=== PATIENT | female | born 1945 | race Caucasian/White ===

== ENCOUNTER 2023-05-21 09:21 | Observation (INO) ==
--- NOTE | 2023-04-19 09:11 | PAT Medication Instructions ---
Medication Instructions Date of Service April 19, 2023 Home Medications amlodipine 5 mg tablet 5 mg PO QAM aspirin 81 mg tablet,delayed release 81 mg PO QAM celecoxib 200 mg capsule (Celebrex) 200 mg PO BID cyclobenzaprine 10 mg tablet 10 mg PO TID PRN ezetimibe 10 mg tablet 10 mg PO QAM lisinopril 20 mg tablet 20 mg PO QAM omeprazole 40 mg capsule,delayed release 40 mg PO QAM trazodone 300 mg tablet,extended release 24 hr 300 mg PO HS ASK your surgeon for instructions celecoxib 200 mg capsule (Celebrex) 200 mg PO BID ASK your prescriber and surgeon aspirin 81 mg tablet,delayed release 81 mg PO QA DO NOT take the morning of surgery lisinopril 20 mg tablet 20 mg PO QAM Take morning of surgery With a small sip of water, OTHERWISE NOTHING TO EAT OR DRINK AFTER MIDNIGHT: amlodipine 5 mg tablet 5 mg PO QAM cyclobenzaprine 10 mg tablet 10 mg PO TID PRN(if needed) ezetimibe 10 mg tablet 10 mg PO QAM omeprazole 40 mg capsule,delayed release 40 mg PO QAM Take evening before surgery cyclobenzaprine 10 mg tablet 10 mg PO TID PRN(if needed) trazodone 300 mg tablet,extended release 24 hr 300 mg PO HS Other Notes If you have any questions please call us at [phone] or [phone] or [phone] or [phone]
--- NOTE | 2023-04-25 14:45 | Anesthesiology Consultation ---
Date of Service April 25, 2023 Assessment & Plan (1) Encounter for pre-operative examination: - Infectious disease screening: Per assessment on 04/25/23: No known infectious disease contacts or current infectious disease symptoms. No noted recent Covid positive test result. - Outpatient joint assessment: Pt currently scheduled for inpatient pathway. If surgeon requests review for outpatient joint pathway, patient is not recommended candidate for outpatient joint program from anesthesia standpoint. - Aortic stenosis: Echo 06/2022 notes Mild to moderate aortic stenosis (EZEQUIEL 1.32cm2, MG 15mmhg). > Ultimate anesthesia decision by anesthesiologist DOS. - Patient concern: Patient notes significant anxiety related to upcoming surgery/anesthesia* - Anesthesia concern: Hx of spinal tap (age 30). Patient cannot remember the reason that they did the spinal tap but states that she was having issues with migraines at the time and thought this might have been related to the reason for doing it. She states there was procedure complications that resulted in CSF leaking/complicated hospital course. Also, hx of back surgery. Patient requests neuraxial anesthesia not used for upcoming Right TKA- requests general anesthesia (of note, patient also has mild to moderate aortic stenosis on 06/2022 Echo). Neuraxial vs GA reviewed with patient. Advised patient to discuss further with anesthesiologist DOS. - Patient acceptable risk for surgery pending surgeon-ordered PCP preop ev aluation (ELVIRA Vargas/Dr. Juarez, appt 05/15). Chart Review Chart Review: Patient seen in Pre Admission Testing Teaching & Discussion Pre-Anesthesia Teaching/Discussion Notes: Instructed NPO after midnight before surgery,except medications with 15 cc of water. Medication instructions prov ided according to the PAT guidelines. History Surgery Operation Date: 05/21/23 11:45 Proposed Procedures p Right Total Knee Arthroplasty - Leonard Huang MD Height/Weight Height: 5 ft 2 in Weight: 67.5 kg Allergies Allergy/AdvReac Type Severity Reaction Status Date / Time nabumetone [From Relafen] Allergy Severe Chest Pain Verified 04/13/23 08:02 nitrofurantoin Allergy Severe Nausea Verified 04/13/23 08:02 [From Macrobid] Penicillins Allergy Intermediate Hives Verified 04/13/23 08:02 tetracycline Allergy Intermediate Vomiting Verified 04/13/23 08:02 pseudoephedrine Allergy Mild Rash Verified 04/13/23 08:02 Sulfa (Sulfonamide Allergy Mild Hives Verified 04/13/23 08:02 Antibiotics) Medications Home Medications Medication Instructions Recorded Confirmed Last Taken amlodipine 5 mg tablet 5 mg PO QAM 04/13/23 04/13/23 Unknown aspirin 81 mg tablet,delayed 81 mg PO QAM 04/13/23 04/13/23 Unknown release celecoxib 200 mg capsule (Celebrex) 200 mg PO BID 04/13/23 04/13/23 Unknown cyclobenzaprine 10 mg tablet 10 mg PO TID PRN Pain (Scale Score 04/13/23 04/13/23 Unknown 1-3) ezetimibe 10 mg tablet 10 mg PO QAM 04/13/23 04/13/23 Unknown lisinopril 20 mg tablet 20 mg PO QAM 04/13/23 04/13/23 Unknown omeprazole 40 mg capsule,delayed 40 mg PO QAM 04/13/23 04/13/23 Unknown release trazodone 300 mg tablet,extended 300 mg PO HS 04/13/23 04/13/23 Unknown release 24 hr Past Medical History Medical History Aortic stenosis Echo 06/2022: Mild to moderate aortic stenosis (EZEQUIEL 1.32cm2, MG 15mmhg) Basal cell carcinoma (BCC) Under surveillance Chronic pain CSF leak Hx of spinal tap (age 30). Patient cannot remember the reason that they did the spinal tap but states that she was having issues with migraines at the time and thought this might have been related to the reason for doing it. She states there was procedure complications that resulted in CSF leaking/complicated hospital course. GERD (gastroesophageal reflux disease) History of COVID-19 2020- Covid + bacterial PNA, hospitalization x 1 month ([facility]) > resolved Hypercholesteremia Hypertension Osteoarthritis Exercise / Class Metabolic Activity II 4-5 Yardwork/Stairs/Walk up hill (one FS: No CP, no SOB) Past Surgical History Surgical History History of back surgery x3 most recent 11/2022 History of basal cell carcinoma (BCC) excision x2, face and chest History of carpal tunnel surgery of right wrist History of colonoscopy History of decompression of both ulnar nerves History of esophagogastroduodenoscopy (EGD) History of left knee replacement History of total replacement of right shoulder joint Hx laparoscopic cholecystectomy Hx of bilateral cataract extraction Hx of section x3 Hx of left knee surgery left total knee revision Hx of left knee surgery patellar surgery Hx of shoulder surgery left AC joint impingement Hx of sinus surgery x3 Hx of total hysterectomy Nausea and vomiting after administration of anesthetic agent Past Anesthesia History No Hx of Anesthesia Complications and No Family Hx of Anesthesia Complications History of PONV History of PONV and Hx of Motion Sickness Social History Smoking Status: Never smoker Do You Dip or Chew Tobacco: No Hx Alcohol Use: Yes alcohol intake frequency: holidays/special occasions only Hx Substance Use: No substance use type: does not use Review of Systems Patient denies chest pain, shortness of breath, dyspnea on exertion, fever, chills, cough, wheezing, palpitations. Physical Exam Vital Signs BP 148/75 P 79 TEMP 97.6 SP02 98%RA RESP 18 Physical Full cervical extension range of motion. Full TMJ range of motion. TMD 3 finger breaths Mallampati Score 2 Dentition: intact, + bridge (upper front) Lungs: clear throughout to auscultation Cardiac: regular rate and rhythm, II/ systolic murmur Spine: normal Carotid arteries: negative bruit Extremities: no LE edema Lab Results Anesthesia Preop Results Results Anesthesia Widget: WBC 3.60 K/ul (4.8-10.8) L 04/25/23 Hgb 11.8 g/dl (12.0-16.0) L 04/25/23 Hct 37.4 % (37.0-47.0) 04/25/23 Plt 181 K/uL (130-400) 04/25/23 Na 142 mmol/L (136-145) 04/25/23 K 3.7 mmol/L (3.5-5.1) 04/25/23 Cl 109 mmol/L (98-107) H 04/25/23 CO2 27 mmol/L (21-32) 04/25/23 BUN 17 mg/dl (6-23) 04/25/23 Creat 0.71 mg/dl (0.6-1.2) 04/25/23 Glucose Level 87 mg/dl (70-99(Fasting)) 04/25/23 PT 10.4 Seconds (9.0-12.0) 04/25/23 PTT 27 Seconds (21-31) 04/25/23 INR 0.9 (0.9-1.1) 04/25/23 Urine Color Yellow 04/25/23 Urine Appearance Cloudy (Clear) A 04/25/23 Urine pH 6.0 (4.5-7.5) 04/25/23 Urine Specific [place] 1.030 (1.000-1.030) 04/25/23 Urine Protein Trace (Negative) H 04/25/23 Urine Glucose (UA) Negative (Negative) 04/25/23 Urine Ketones Trace (Negative) H 04/25/23 Urine Blood Negative (Negative) 04/25/23 Urine Nitrite Negative (Negative) 04/25/23 Urine Bilirubin Negative (Negative) 04/25/23 Urine Urobilinogen Negative (Negative) 04/25/23 Urine Leukocyte Esterase Negative (Negative) 04/25/23 Urine WBC (Auto) 1-5 /hpf (0-5) 04/25/23 Urine RBC (Auto) 0-4 /hpf (0-4) 04/25/23 Urine Hyaline Casts (Auto) 1-5 /lpf (0-5) 04/25/23 Urine Epithelial Cells (Auto) >30 /lpf (0-5) H 04/25/23 Urine Bacteria (Auto) Negative (Negative) 04/25/23 Blood Type O Positive 04/25/23 Antibody Screen NEGATIVE 04/25/23 Testing Laboratory Results *Low WBC- preop testing forwarded to PCP for continuity of care* Chest X-Ray Date: 04/25/23 FINDINGS: No lines and tubes are seen. The cardiomediastinal silhouette is normal. The lungs are clear. No evidence of pleural effusion or pneumothorax. Right shoulder arthroplasty is seen. IMPRESSION: No acute chest disease. Echocardiogram Date: 06/21/22 EF 60-64%. Moderate mitral sclerosis. Mild MAC. Mild MR. Moderate calcified AV. Mild to moderate aortic stenosis (EZEQUIEL 1.32cm2, MG 15mmhg). Mild AR. Trace to mild TR. Mild cLVH. Mildly enlarged ascending aorta.
--- NOTE | 2023-05-04 19:35 | History & Physical Report ---
Date of Service May 04, 2023 Assessment & Plan (1) Osteoarthritis of knee: Plan: Right knee pre-existing primary osteoarthritis of the knee medial compartment with subsequent knee injury due to trauma and development of insufficiency fracture medial femoral condyle with chronic pain failed conservative management. Best option is to proceed with right total knee replacement at her age. History of left knee replacement which required revision replacement with stems. Risks and benefits of the surgery were discussed including infection DVT pain stiffness nonunion need for revision surgery failure to relieve all symptoms damage to blood vessels or nerves Medical complication risk. Patient wants to proceed with knee replacement surgery on the right knee. Osteoarthritis type: primary Laterality: right Qualified Code(s): M17.11 - Unilateral primary osteoarthritis, right knee (2) Insufficiency fracture of medial femoral condyle: History of Present Illness Chief Complaint: Right knee pain and disability Primary Care Provider: Cortez Juarez DO 77-year-old female who on February 13 went to catch a friend who weighed around 250 pounds and injured her right knee. Patient had bracing and injection protected weightbearing. Patient denies headaches, sweats, fevers, chills, double vision, blurred vision, cough, sore throat, dysphagia, chest pain, sob, wheezing, n/v/d/c, numbness, tingling, fatigue, urinary symptoms, mood disorders. ROS positive for hypertension, lumbar fusion, acid reflux heartburn, basal cell cancer ,nausea with anesthesia Allergies Allergy/AdvReac Type Severity Reaction Status Date / Time nabumetone [From Relafen] Allergy Severe Chest Pain Verified 04/13/23 08:02 nitrofurantoin Allergy Severe Nausea Verified 04/13/23 08:02 [From Macrobid] Penicillins Allergy Intermediate Hives Verified 04/13/23 08:02 tetracycline Allergy Intermediate Vomiting Verified 04/13/23 08:02 pseudoephedrine Allergy Mild Rash Verified 04/13/23 08:02 Sulfa (Sulfonamide Allergy Mild Hives Verified 04/13/23 08:02 Antibiotics) Home Medications Medication Instructions Recorded Confirmed Type amlodipine 5 mg tablet 5 mg PO QAM 04/13/23 04/13/23 History aspirin 81 mg tablet,delayed 81 mg PO QAM 04/13/23 04/13/23 History release celecoxib 200 mg capsule (Celebrex) 200 mg PO BID 04/13/23 04/13/23 History cyclobenzaprine 10 mg tablet 10 mg PO TID PRN Pain (Scale Score 04/13/23 04/13/23 History 1-3) ezetimibe 10 mg tablet 10 mg PO QAM 04/13/23 04/13/23 History lisinopril 20 mg tablet 20 mg PO QAM 04/13/23 04/13/23 History omeprazole 40 mg capsule,delayed 40 mg PO QAM 04/13/23 04/13/23 History release trazodone 300 mg tablet,extended 300 mg PO HS 04/13/23 04/13/23 History release 24 hr Past Med/Surg History Medical History Aortic stenosis Echo 06/2022: Mild to moderate aortic stenosis (EZEQUIEL 1.32cm2, MG 15mmhg) Basal cell carcinoma (BCC) Under surveillance Chronic pain CSF leak Hx of spinal tap (age 30). Patient cannot remember the reason that they did the spinal tap but states that she was having issues with migraines at the time and thought this might have been related to the reason for doing it. She states there was procedure complications that resulted in CSF leaking/complicated hospital course. GERD (gastroesophageal reflux disease) History of COVID-19 2020- Covid + bacterial PNA, hospitalization x 1 month ([facility]) > resolved Hypercholesteremia Hypertension Osteoarthritis Surgical History History of back surgery x3 most recent 11/2022 History of basal cell carcinoma (BCC) excision x2, face and chest History of carpal tunnel surgery of right wrist History of colonoscopy History of decompression of both ulnar nerves History of esophagogastroduodenoscopy (EGD) History of left knee replacement History of total replacement of right shoulder joint Hx laparoscopic cholecystectomy Hx of bilateral cataract extraction Hx of section x3 Hx of left knee surgery left total knee revision Hx of left knee surgery patellar surgery Hx of shoulder surgery left AC joint impingement Hx of sinus surgery x3 Hx of total hysterectomy Nausea and vomiting after administration of anesthetic agent Social History Smoking Status: Never smoker Second Hand Exposure: No; Do You Dip or Chew Tobacco: No; Tobacco Cessation Education Requested by Patient: No Hx Alcohol Use: Yes Hx Substance Use: No Preferred Language: Macedonian Communication Ability: Effective Curriculum Counselor Required: No Beliefs That Will Affect Care: None Current Living Situation: Alone Other Information That Helps Us Care for You: No Feels Safe at Home: Yes Safety Concerns: Feels Safe At This Time Assistive Devices: Cane and Glasses Review of Systems All systems reviewed & are unremarkable except as noted in HPI & below Physical Exam Constitutional: WD/WN, vitals as above Respiratory: normal respiratory effort; no respiratory distress Cardiovascular: Rate/Rhythm: regular rate and regular rhythm Musculoskeletal: Right knee with varus knee with 10 through 90 degrees of range of motion no instability. Left knee exam consistent with knee replacement. Skin: no rashes, warm and dry Neurologic: normal touch/pain/proprioception Psychiatric: A+Ox3, euthymic affect Results & Data Diagnostic Findings Right knee x-ray and MRI demonstrate medial joint space narrowing close to being [id number] with subchondral sclerosis and medial femoral condyle has a large insufficiency fracture with marked bone edema in the femoral condyle. Could have osteonecrosis medial femoral condyle.
[~2023-05-21 09:21] MED LIST: ROPIVACAINE 0.5% 5 MG/ML 30 ML VIAL ONE
[2023-05-21] MEDS ORDERED: ePHEDrine sulfate 50 MG/ML AMP IV PRN (09:48)
[2023-05-21] MEDS ORDERED: ONDANSETRON INJ 2 MG/ML 2 ML VIAL IV PRN (09:48)
[2023-05-21] MEDS ORDERED: ATROPINE SULFATE 0.1 MG/ML 10ML SYR IV PRN (09:48)
[2023-05-21] MEDS ORDERED: PROPOFOL IV EMULSION 10 MG/ML 20 ML VIAL IV ONE (09:52)
[2023-05-21] MEDS ORDERED: fentaNYL citrate PF 100 MCG/2 ML VIAL ONE ×2 (09:52→11:49)
[2023-05-21] MEDS ORDERED: ROCURONIUM BROMIDE 10 MG/ML 5 ML VIAL IV ONE (09:52)
[2023-05-21] MEDS ORDERED: MIDAZOLAM HCL 1 MG/ML 2ML VIAL ONE (09:53)
[2023-05-21] MEDS: LR 15ML/HR IV SCH (09:55)
[2023-05-21] MEDS: dexAMETHasone**PF** 10 MG/ML VIAL IV SCH (09:56)
[2023-05-21] MEDS: VANCOMYCIN HCL 1,000 MG/270 ML BAG IV SCH (09:57)
[2023-05-21] MEDS: ACETAMINOPHEN 500 MG TAB PO SCH ×2 (10:02→21:31)
[2023-05-21] MEDS: FAMOTIDINE 20 MG TAB PO SCH (10:03)
[2023-05-21] MEDS: METOCLOPRAMIDE HCL 10 MG TABLET PO SCH (10:03)
[2023-05-21] MEDS: LR 60ML/HR IV SCH (10:03)
[2023-05-21] MEDS: CeleBREX 200 MG CAP PO SCH (10:03)
[2023-05-21] MEDS: GABAPENTIN 300 MG CAP PO SCH (10:03)
--- NOTE | 2023-05-21 11:13 | History & Physical Bridge Note ---
Date of Service May 21, 2023 History & Physical Bridge Note I have examined the patient, reviewed the History & Physical and in the interval since the performance of the History & Physical I have noted the following changes of clinical significance: no changes noted
[2023-05-21] MEDS: TRANEXAMIC ACID 1,000 MG **IV Pre-op IV SCH (11:14)
[2023-05-21] MEDS ORDERED: DEXAMETHASONE SOD INJ 4 MG/ML VIAL ONE (11:43)
[2023-05-21] MEDS ORDERED: ONDANSETRON INJ 2 MG/ML 2 ML VIAL ONE (11:43)
[2023-05-21] MEDS ORDERED: ePHEDrine sulfate 50 MG/5 ML SYR ONE (11:50)
[2023-05-21] MEDS ORDERED: SUGAMMADEX SODIUM 200 MG/2 ML VIAL IV ONE (12:09)
[2023-05-21] MEDS ORDERED: HYDROmorphone INJ 2 MG/ML SYR/VIAL ONE (12:13)
[2023-05-21] MEDS: ROPIV 0.5% 246mg, Ketorolac 30mg, EPINEPHrine 0.5mg in NSS INFIL SCH (12:25)
[2023-05-21] MEDS: ORTHO JOINT ANESTHETIC ONE (12:26)
[2023-05-21] MEDS ORDERED: METOPROLOL TARTRATE 1 MG/ML VIAL IV ONE (12:36)
--- OUTSIDE RECORDS SUMMARY | 2023-05-21 13:00 | External Medical Summary | Summary of Care ---
Author Name Unknown Organization [facility] Address [address] [place] [address] Phone [phone] Care Team Providers Care Drill Punch Operator Name Role Phone Cortez Juarez DO Primary Care Provider Encounter Details Date Type Department Care Team (Latest Contact Info) Description 04/24/2023 1:17 PM EDT - 04/24/2023 11:59 PM EDT Hospital Encounter Radiology Film File [address] [place] [address] Arrived Discharge Disposition: Home - Self Care Allergies Active Allergy Reactions Criticality Noted Date Comments Nitrofurantoin Monohyd Macro Nausea/vomiting Medium 09/14/2015 Nabumetone Other (Please comment) Medium 06/11/2015 Reported chest pain Other reaction(s): Other (See Comments), Unspecified Chest heaviness Reported chest pain Nitrofurantoin 06/14/2018 Other reaction(s): GI intolerance Penicillins Hives,Rash Low 12/07/2011 Tolerated periop cefazolin 11/2018 Pseudoephedrine Other (Please comment) 12/07/2011 "crawling" feeling on skin Other reaction(s): Other (See Comments), Unspecified "bugs under skin" Feels like bugs crawling on body. "crawling" feeling on skin Sulfa Antibiotics Hives,Rash Low 12/07/2011 Tetracyclines & Related Nausea/vomiting Low 07/19/ 016 Other reaction(s): GI intolerance Nausea Other reaction(s): GI intolerance Nausea documented as of this encounter (statuses as of 04/25/2023) Medications Medication Sig Dispensed Refills Start Date End Date Status Levocetirizine Dihydrochloride 5 MG Oral TabletIndications:Seas onal allergies take 1 tablet by mouth every evening 90 Tablet 1 04/25/2021 Active amLODIPine Besylate 5 MG Oral Tablet (Norvasc)Indications:H TN, goal below 140/90 Take by mouth 1 Tablet in the morning. 90 Tablet 3 05/12/2021 Active Meloxicam 15 MG Oral TabletIndications:Prim irwin osteoarthritis of left knee take 1 tablet by mouth once daily NEEDED FOR PAIN 90 Tablet 1 09/08/2021 Active Lisinopril 20 MG Oral Tablet (Prinivil)Indications: HTN, goal below 140/80,Essential hypertension with goal blood pressure less than 140/90 Take by mouth 1 Tablet in the morning. 90 Tablet 1 09/26/2021 Active traZODone HCl 300 MG Oral Tablet (Desyrel)Indications:P rimary insomnia take 1 tablet by mouth at bedtime 90 Tablet 1 09/27/2021 Active Omeprazole 40 MG Oral Capsule Delayed Release (PriLOSEC)Indications: Gastroesophageal reflux disease without esophagitis TAKE 1 CAPSULE BY MOUTH 1 HOUR BEFORE THE FIRST MEAL OF THE DAY 90 Capsule 1 10/03/2021 Active Ezetimibe 10 MG Oral Tablet (Zetia) Take by mouth 1 Tablet in the morning. 90 Tablet 1 10/03/2021 Active Ventolin HFA 108 (90 Base) MCG/ACT Inhalation Aerosol Solution Inhale by mouth 2 Puffs every 4 hours as needed for Wheezing. 18 g 2 11/10/2021 Active Furosemide 20 MG Oral Tablet (Lasix) 1 Tablet. 0 09/12/2022 Active traMADol HCl 50 MG Oral Tablet (Ultram) TAKE 1 TABLET BY MOUTH EVERY 6 HOURS NEEDED FOR MODERATE PAIN. MAX DAILY AMOUNT: 200 MG 0 10/23/2022 Active Celecoxib 200 MG Oral Capsule (CeleBREX) Take 1 Capsule by mouth in the morning and 1 Capsule before bedtime. 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 06/23/2018 Hyperlipidemia 05/30/2018 Status post total left knee replacement 03/04/19 19 Instability of prosthetic knee 01/04/2018 S/P shoulder replacement, right 08/29/2017 Right shoulder pain 04/19/2017 Biceps tendonitis on right 04/19/2017 HTN, goal below 140/90 07/19/2015 Overview: Per HTN Protocol Rosacea 06/14/2015 Overview: Presumptive, minor skin findings but many eye complaints minocycline 50mg once a day History of actinic keratoses 06/14/2015 Overview: Diffuse Actinic Keratoses on face 5FU Dec 2011 Personal history of malignant neoplasm of skin 0 06/14/2015 Overview: History Basal Cell Carcinoma L uppermost arm///C44. Primary osteoarthritis of left knee 12/30/2014 Hiatal hernia 12/30/2014 documented as of this encounter (statuses as of 04/25/2023) Resolved Problems Problem Noted Date Diagnosed Date Resolved Date Aftercare following surgery of the musculoskeletal system 08/29/2017 06/23/2018 Acute pain of left knee 11/09/201506/05 Status post total left knee replacement 06/14/2015 06/23/2018 HTN, goal below 140/80 05/04/201507/21 Overview: Per HTN Protocol Other seborrheic keratosis 04/12/2012 0 04/15/2013 Personal history of other ma lignant neoplasm of skin 12/11/2011 06/14/2015 Overview: History Basal Cell Carcinoma L uppermost arm///C44. Actinic keratosis 12/07/2011 04/15/2013 Overview: Diffuse Actinic Keratoses on face 5FU Dec 2011 documented as of this encounter (statuses as of 04/25/2023) Immunizations Name Administration Dates Next Due DTaP Dipth/Tet/Acell Pertussis (Infanrix), Peds 09/14/1998,08/12/1996,04/19/1994,02/14,12/09/1993 HIB PRP-T, 4 dose (ActHib) 09/14/1998,,04/19/1994,02/14,12/09/1993 Hepatitis B, 0-19 yrs 08/12/1996,12/09/1993,10/07 IPV - Polio Virus Vaccine (Inact) 1998,03/18/1996,02/14/1994,12/09 MMR - Measles/Mumps/Rubella Vaccine 09/14/1998,0 03/18/1996 Meningococcal Conjugate Vacc ine (Menactra/Menveo) 05/14/2008 Pneumococcal Conjugate Vacc, 13 Valent (Prevnar) 08/04/2019 Pneumococcal Polysaccharide PPV23 (Pneumovax) 11/29/2017 Seasonal Influenza, Quadriva lent Hd (Fluzone Hd) 11/10/2021 Seasonal Influenza, Recombin ant, RIV4, PF, (Flublock) 12/05/2020 documented as of this encounter Social History Tobacco Use Types Packs/Day Years Used Date Smoking Tobacco: Never Smokeless Tobacco: Never Alcohol Use Standard Drinks/Week Comments Yes 0 (1 standard drink = 0.6 oz pur e alcohol) rarely PHQ-2 Answer Date Recorded PHQ-2 Score 0 08/04/2019 Hunger Vital Sign Answer Date Recorded Worried About Running Out of Food in the Last Ye ar Never true 08/04/2019 Ran Out of Food in the Last Year Never true 08/04/2019 Sex and Gender Information Value Date Recorded Sex Assigned at Not on file Gender Identity Not on file Sexual Orientation Not on file Job Start Date Occupation Industry Not on file Not on file Not on file documented as of this encounter Functional Status Functional Status Response Date of Assess ment Are you deaf or do you have serious difficulty h earing? No 03/04/2018 Are you blind or do you have serious difficulty seeing, even when wearing glasses? No 03/04/2018 Do you have serious difficul ty walking or climbing stairs? (5 years old or older) No 03/04/2018 Do you have difficulty dress ing or bathing? (5 years old or older) No 03/04/2018 Because of a physical, menta l, or emotional condition, do you have difficulty doing errands alone such as visiting a doctor s office or shopping? (15 years old or older) No 03/04/19 19 Cognitive Status Response Date of Assessm ent Because of a physical, menta l, or emotional condition, do you have serious difficulty concentrating, remembering, or making decisions? (5 years old or older) No 03/04/2018 documented as of this encounter Plan of Treatment Upcoming Encounters Date Type Department Care Team (Late st Contact Info) Description 11/27/2023 2:30 PM EDT Office Visit Dermatology, [facility] [address] [place] [phone] Juhi Krause PA-C [address] [place] [phone] Health Maintenance Due Date Last Done Comments Albumin/Creatinine Ratio 08/25/1963 Zoster Vaccines (1 of 2) 08/25/1995 DTaP,Tdap,and Td Vaccines (6 - Tdap) 09/14/2008 09/14/1998, 08/12/1996, 04/19/1994, Additional history exists Depression Screening 08/03/2020 08/04/2019, 03/17/19 17 COVID-19 Vaccine ( season) 2022 Influenza Vaccine (FLU shot) (#1) 2022 11/10/2021, 11/10/2021, 11/10/2021, Additional history exists GFR 12/08/2023 12/07/2022, 03/2022, 12/06/2022, Additional history exists DXA Scan 07/29/2025 07/29/2018, 07/07, 07/29/2018, Additional history exists Hepatitis B Aged Out 08/12/1996, 05/1993, 10/25/1993 No longer eligible based on patient's age to complete this topic MENINGOCOCCAL (MENACTRA/MENVEO) Aged Out 05/14/2008, 05/14/2008 No longer eligibl e based on patient's age to complete this topic Pneumococcal Vaccine: 65+ Years Completed 08/04/2019, 11/29/2017 GARDASIL-HPV IMMUNIZATION SERIES Aged Out No longer eligible based on patient's age to complete this topic documented as of this encounter Medical Devices Implanted Type Area Director Enterprise Sales Device Identifier Shelf Expiration Date Model / Serial / Lot Nice Loop White/Green Braided Ptfe Impregnated Polyester Fiber Nonabsorable Surgicle Suture Implanted:Qty: 1 on 08/21/2017 by Chaim Ambrose DO at OR [facility] Right: Shoulder 04/27/2021 [id number] / / [id number] Wite Braided Ptfe Impregnated Polyester Fiber Nonabsorable Surgical Suture Implanted:Qty: 1 on 08/21/2017 by Chaim Ambrose DO at OR [facility] Right: Shoulder 03/10/2021 [id number] / / [id number] Green Braided Ptfe Imed Polyester Fiber Nonabsorbable Surgical Suture Implanted:Qty: 1 on 08/21/2017 by Chaim Ambrose DO at OR [facility] Right: Shoulder 12/01/2020 [id number] / / [id number] Cement Bone R 1112-140-01 - [id number] Implanted:Qty: 1 on 08/21/2017 by Chaim Ambrose DO at OR [facility] Right: Shoulder [employer] 03/07/2022 00-1112-1 40-01 / / Aequalis Perform Cortiloc Pegged Glenoid-Uhmwpe +Cocr Implanted:Qty: 1 on 08/21/2017 by Chaim Ambrose DO OR [facility] Right: Shoulder [employer] 04/18/2022 [id number] / [id number] / Aequalis Humeral Head-Cocr 0= 46mm H= 17mm Ecc =Low (1.5) Mat=Cocr Implanted:Qty: 1 on 08/21/2017 by Chaim Ambrose DO at OR [facility] Right: Shoulder [employer] 12/28/2021 [id number] / [id number] / Standard Ptc Humeral Stem [id number] + Ti Size=3a, Mmdvq=419.5 Degree L=74mm Coat=Ptc Implanted:Qty: 1 on 08/21/2017 by Chaim Ambrose DO OR [facility] Right: Shoulder [employer] 01/25/2021 [id number] / [id number] / [place] Suture Biocomposite - [id number] Implanted:Qty: 2 on 08/21/2017 by Chaim Ambrose DO at OR [facility] Right: Shoulder [employer] 06/05/2019 [id number] / / [id number] Cement Bone G 1113-140-01 - [id number] Implanted:Qty: 1 on 03/04/2018 by Joe Quintana MD at OR [facility] Left: Knee [employer] 09/05/2019 00-1113-1 40- / / [id number] Gmk Wedge Tibial Hinge 5mm S3 - [id number] Implanted:Qty: 1 on 03/04/2018 by Joe Quintana MD at OR [facility] Left: Knee [employer] 12/11/2022 02.09.TA3 05 / [id number] Gmk Wedge Tibial Hinge 5mm S3 - [id number] Implanted:Qty: 1 on 03/04/2018 by Joe Quintana MD at OR [facility] Left: Knee [employer] 12/11/2022 02.09.TA3 354 Femoral Component- Medacta Cemented Revision Left Ps Implanted:Qty: 1 on 03/04/2018 by Joe Quintana MD at OR [facility] Left: Knee 05/24/2022 02.07.240 3L / / [id number] Description:medacta Femoral Wedge Posterior Size 3, Height 5, Revision Implanted:Qty: 1 on 03/04/2018 by Joe Quintana MD at OR [facility] Left: Knee 2021 02.05.03P W / / [id number] Description:medacta Extension Stem Cemented- Length 65, 13, Revision Implanted:Qty: 1 on 03/04/2018 by Joe Quintana MD at OR [facility] Left: Knee 01/02/2023 02.07.FSC 86992 / / [id number] Description:medacta Extension Stem Cemented- 11, Length 65, Revision Implanted:Qty: 1 on 03/04/2018 by Joe Quintana MD at OR [facility] Left: Knee 05/07/2021 02.07.FSC [id number] / / [id number] Description:medacta Fixed Tibial Tray- Size 3, Left, Cemented Revision Implanted:Qty: 1 on 03/04/2018 by Joe Quintana MD at OR [facility] Left: Knee 10/15/2022 02.07.068 3L / / [id number] Description:medacta Tibial Insert Fixed- Size 3, Height 17, Semiconstrained Implanted:Qty: 1 on 03/04/2018 by Joe Quintana MD at OR [facility] Left: Knee 04/25/2022 02.07.031 7SCF / / [id number] Description:medacta Cement Bone G 1113-140-01 - [id number] Implanted:Qty: 4 on 03/04/2018 by Joe Quintana MD at OR [facility] Left: Knee [employer] 06/04/2020 00-1113-1 40- / / [id number] documented as of this encounter Procedures Procedure Name Priority Date/Time Associated Diagnosis Comments DERM EXAM - DERM (IMAGES ONLY, NO REPORT) Routine 04/24/2023 1:17 PM EDT AK (actinic keratosis) documented in this encounter Results * DERM EXAM - DERM (IMAGES ONLY, NO REPORT) (04/24/2023 1:17 PM EDT) Narrative Scheduling, Silent - 04/24/2023 1:17 PM EDT This is an imaging study not interpreted or resulted by a [facility] or [facility] contracted radiologist. Juhi Krause PA-C RADIOLO GY (RAD GENERAL) documented in this encounter Advance Directives Latest Code Status on File Code Status Date Activated Date Inactivated Comments Full Code 03/04/2018 10:02 AM 03/06/2018 4:59 PM This order reflects the patients wishes and were consensually agreed upon. Code Status History Code Status Date Activated Date Inactivated Comments Full Code 03/04/2018 10:01 AM 03/04/2018 10:02 AM Thi s order reflects the patients wishes and were consensually agreed upon. Question Answer Comments Discussion of Advance Directives occurred with: Not Discussed Does the patient have a Living Will? No Does the patient have Health Care Power of Cloth Piecer? No Full Code 08/21/2017 4:14 PM 08/23/2017 4:52 PM . Question Answer Comments Discussion of Advance Directives occurred with: Not Discussed Full Code 07/10/2017 1:18 PM 07/10/2017 7:17 PM This or kelle reflects the patients wishes and were consensually agreed upon. Care Teams Drill Punch Operator Relationship Specialty Start Date End Date Cortez Juarez DO [address] [place] [address] [place] [phone] PCP - General Family Medicine 08/05/16 documented as of this encounter
--- OUTSIDE RECORDS SUMMARY | 2023-05-21 13:00 | External Medical Summary | Continuity of Care Document ---
Author Name Unknown Organization [address] [place] [id number] Care Team Providers Care Bee Keeper Name Role Phone Cortez Juarez Primary Care Physician [phone] Encounter [facility] [id number] Date(s): 05/17/23 - 05/17/[address] [facility] [address] [place] [id number] Encounter Diagnosis Preoperative examination(Discharge Diagnosis) - 05/17/23 Preop testing(Discharge Diagnosis) - 05/17/23 Osteoarthritis of right knee(Discharge Diagnosis) - 05/17/23 Hx of shoulder replacement(Discharge Diagnosis) - 05/17/23 Hypertension(Discharge Diagnosis) - 05/17/23 Prediabetes(Discharge Diagnosis) - 05/17/23 Anxiety(Discharge Diagnosis) - 05/17/23 Discharge Disposition: Home or Self Care Attending Physician: DO Juarez Daniel T Referring Physician: DO Juarez Daniel T Allergies, Adverse Reactions, Alerts Substance Reaction Severity Status tetracycline vomiting Active nitrofurantoin Drug-induced nausea and vomiting Modera te Active nabumetone Active pseudoephedrine crawling under skin Activ e diclofenac Propensity to adverse reaction Active sulfa drugs rash hives Active Macrobid severe nausea vomiting Active tetracyclines Gastrointestinal symptom Mild Ac tive Relafen Severe nausea and vo miting that has lasted a long time.... Chest pain Active PCN (penicillin) rash hives Active Assessment and Plan Extracted from: Title:Office Visit Note Author:DO Juarez Danie l T Date:05/17/23 1.Preoperative examination 2.Preop testing 3.Osteoarthritis of right knee ECG in office : NSR 72 bpm, VR 72, AR 72, No acute or ischemic ST-T changes appreciated- Normal ECG CXR 04/25/23- no acute chest disease Per-op labs : PT 10.4, INR 0.9, PTT 27 BUN 17, Cr 0.71 GFR 95.2 BMP unremarkable, CBC unremarkable UA unremarkable Blood type O +, Ab negative Pt was informed to hold ASA, Celebrex starting today and no OTC NSAIDS til after procedure Tylenol XS 2 bid prn Tramadol 100 mg q 6hr prn 4.Anxiety Pt relates increased stress, anxiety with procedure Provided Rx for lorazepam 0.5 mgbid prn 5.Hypertension Stable Continue amlodipine 5 mg daily Continue lisinopril 20 mg daily Furosemide 20 mg daily, hold am of surgery 6.Prediabetes Stable , most recent HgbA1c 5.3 Pt is medically and cleared for above procedure as scheduled Immunizations Given and Recorded Vaccine Date Status Refusal Reason influenza virus vaccine, inactivated 1 11/10/21 Re corded influenza virus vaccine, inactivated 2 12/05/20 Re corded influenza virus vaccine, inactivated 12/05/20 Juvenal rded pneumococcal 13-valent vaccine 3 08/04/19 Recorded pneumococcal 23-valent vaccine 4 11/29/17 Recorded meningococcal conjugate vaccine 05/14/08 Recorded haemophilus b conjugate (PRP-T) vaccine 09/14/98 R ecorded haemophilus b conjugate (PRP-T) vaccine 08/12/96 R ecorded haemophilus b conjugate (PRP-T) vaccine 04/19/94 R ecorded haemophilus b conjugate (PRP-T) vaccine 02/14/94 R ecorded haemophilus b conjugate (PRP-T) vaccine 12/09/93 R ecorded diphtheria/tetanus/pertuss, acel (DTaP) 09/14/98 R ecorded diphtheria/tetanus/pertuss, acel (DTaP) 08/12/96 R ecorded diphtheria/tetanus/pertuss, acel (DTaP) 04/19/94 R ecorded diphtheria/tetanus/pertuss, acel (DTaP) 02/14/94 R ecorded diphtheria/tetanus/pertuss, acel (DTaP) 12/09/93 R ecorded measles/mumps/rubella virus vaccine 09/14/98 Recor ded measles/mumps/rubella virus vaccine 03/18/96 Recor ded poliovirus vaccine, inactivated 09/14/98 Recorded poliovirus vaccine, inactivated 03/18/96 Recorded poliovirus vaccine, inactivated 02/14/94 Recorded poliovirus vaccine, inactivated 12/09/93 Recorded hepatitis B pediatric vaccine 08/12/96 Recorded hepatitis B pediatric vaccine 12/09/93 Recorded hepatitis B pediatric vaccine 10/25/93 Recorded 1Result Comment: [employer] Lead: [employer] 2Result Comment: [employer] Lead: [employer] 3Result Comment: Unit: Unknown [employer] Lead: [employer] [place] 4Result Comment: Unit: Unknown [employer] Lead: [employer] Medications amLODIPine 5 mg oral tablet Start: 03/26/23 8:55:00 EST, 1 tab, PO, Daily, Disp# 90 tab, Refills: 3, Pharmacy: [facility] [id number] Start Date: 03/26/23 Status: Ordered CeleBREX 200 mg oral capsule Start: 05/17/23 7:18:00 EDT, 1 cap, PO, bid, PRN: as needed for pain Start Date: 05/17/23 Status: Ordered cetirizine 10 mg oral tablet Start: 01/17/22 16:20:00 EST, 90 each, take 1 tablet by mouth every morning Start Date: 01/17/22 Status: Ordered ezetimibe 10 mg oral tablet Start: 10/24/22 8:18:00 EDT, See Instructions, Disp# 90 tab, Refills: 1, take 1 tablet by mouth every morning, Pharmacy: [facility] [id number] Start Date: 10/24/22 Status: Ordered furosemide 20 mg oral tablet Start: 10/24/22 8:18:00 EDT, 1 tab, PO, Daily, Disp# 90 tab, Refills: 1, Pharmacy: [place] [id number] Start Date: 10/24/22 Status: Ordered lisinopril 20 mg oral tablet Start: 04/16/23 8:11:00 EDT, 1 tab, PO, qAM, Disp# 90 tab, Refills: 1, Pharmacy: [facility] Start Date: 04/16/23 Status: Ordered LORazepam 0.5 mg oral tablet Start: 05/17/23 7:57:00 EDT, 1 tab, PO, bid, Disp# 6 tab, Refills: 0, PRN: as needed for anxiety, Pharmacy: [facility] [id number] Start Date: 05/17/23 Status: Ordered omeprazole 40 mg oral delayed release capsule Start: 12/27/22 16:05:00 EST, See Instructions, Disp# 90 cap, Refills: 0, TAKE 1 CAPSULES 1 HOUR BEFORE 1ST MEAL OF THE DAY, Pharmacy: [facility] [id number] Start Date: 12/27/22 Status: Ordered traMADol 100 mg oral tablet Start: 05/17/23 7:19:00 EDT Start Date: 05/17/23 Status: Ordered traZODone 300 mg oral tablet Start: 04/16/23 8:11:00 EDT, 1 tab, PO, qhs, Disp# 90 tab, Refills: 1, Pharmacy[id number] Start Date: 04/16/23 Status: Ordered triamcinolone 0.1% topical ointment Start: 05/19/19 13:03:00 EDT, 1 appl, topical, qhs, Disp# 15 g, Refills: 0, Nightly as needed, [facility] Start Date: 05/19/19 Status: Ordered Ventolin HFA Start: 01/17/22 17:08:00 EST, 2 Unknown, Inhalation, 3 Refill(s), Inhale by mouth 2 Puffs every 4 hours as needed for Wheezing. Start Date: 01/17/22 Status: Ordered Problem List Condition Confirmation Course Effective Dates Status H ealt Status Informant Anxiety Confirmed Active Aortic valve stenosis Confirmed Active Carotid bruit Confirmed Active Chronic constipation Confirmed Active GERD without esophagitis Confirmed Active Hiatal hernia Confirmed Active Hx of shoulder replacement Confirmed Active Hyperlipidemia Confirmed Active Hypertension Confirmed Active Insomnia Confirmed Active Lumbar radiculopathy Confirmed Active MR (mitral regurgitation) Confirmed Active Osteoarthritis of right knee Confirmed Active Preop testing Confirmed Active Preoperative examination Confirmed Active Prediabetes Confirmed Active Rosacea Confirmed Active Lumbar stenosis with neurogenic claudication Confirmed Active Subclinical hyperthyroidism Confirmed Active Diagnosis Diagnosis Type Effective Dates Health Status Clinical Service Informant Preop testing Discharge Diagnosis 05/17/23 Preoperative examination Discharge Diagnosis 05/17/23 Osteoarthritis of right knee Discharge Diagnosis 05/17/23 Hx of shoulder replacement Discharge Diagnosis 05/17/23 Hypertension Discharge Diagnosis 05/17/23 Prediabetes Discharge Diagnosis 05/17/23 Anxiety Discharge Diagnosis 05/17/23 Procedures Procedure Date Related Diagnosis Body Site Status back surgery 11/2018 Completed left knee replacement revision 03/04/18 Completed Total knee replacement 1 12/2015 Completed Total knee replacement 2 01/2015 Completed Surgery 3 10/2011 Completed Spinal fusion 4 01/2011 Completed Surgery 5 05/2010 Completed Carpal tunnel release 6 2002 C ompleted Total hysterectomy 1985 Comple sol section 1977 Complete d section 1970 Complete d section 1968 Complete d Excision of ganglion cyst 7 Completed Excision of lipoma 8 Comp leted History of nasal sinus surgery 9 Completed Surgery 10 Completed Surgery 11 Completed Total right shoulder replacement 12 Completed 1Left knee 2left knee 3Removal of spinal cord stimulator. 4Lumber spine. 5Insertion of spinal cord stimulator 6Right 7right wrist 8left lower back [id number], 1989, 1992 10impingement of left shoulder 11bilateral ulnar nerve surgery. 2002 and 2005 [id number] Vital Signs Most recent to oldest [Reference Range]: 1 Height 158.0 cm (05/17/23 7:20 AM) Patient Weight 67.0 kg (05/17/23 7:20 AM) Body Mass Index 26.84 kg/m2 (05/17/23 7:20 AM) Temperature [36.5-37.9 DegC] 36.8 DegC (05/17/23 7:20 AM) Blood Pressure 130/72mmHg (05/17/23 7:20 AM) Cuff Pulse Pressure 58 mmHg (05/17/23 7:20 AM) BP Location # 1 Left Arm (05/17/23 7:20 AM) Social History Social History Type Response Smoking Status Never smoked cigaret karol Sex Female Radiology * MD Amador Sang K: VERIFY, PERFORM Event Display: EKG Authored Date: PROCEDURE DATE: Sinus rhythm ECG now within normal limits Comparison Summary: Some abnormalities no longer present Summary: Normal ECG Compared with:11/15/2022 7:31 AM; 06/18/2017 12:48 PM Electronically Signed By: Marjorie Sauceda MD Date: 05/17/2023 Time: 07:57 * MD Amador Sang K: VERIFY, PERFORM Event Display: EKG Authored Date: FCM Outpt Note * DO Juarez Daniel T: PERFORM Event Display: FCM Outpt Note Authored Date: [id number] Chief Complaint Pt here for a pre-op clearance R total knee replacement. History of Present Illness Preoperative evaluation- Requested by/Surgeon: _Dr Leonard Huang Planned surgery:intermediate risk (intraperitoneal, intrathoracic, CEA, head/neck, ortho, prostate) RIGHT TOTAL KNEE ARTHROPLASTY Planned anesthesia:general Exercise tolerance:4 METs (climbing 1 flight, walking up hill, level ground @ 4mph, heavy house work) Bleeding tendency/history: _Denied Substance use per social history in EHR - Denied Prior response to anesthesia: _Denies any personal or family history of complications Revised Cardiac Risk Index: Score [0_] [_0] High Risk Surgery [_0] Ischemic Heart Disease [_0] History of CHF [_0] History of cerebrovascular disease [_0] Insulin therapy for DM [_0] Pre-op Cr >2 Very pleasant 77 yo female with primary OA right knee -end stage . with avascular necrosis in need of total right knee replacement. Procedure scheduled 05/21/23 at [facility] to be done by Dr Huang under general anesthesia PMX : HTN, HLD, prediabetes , subclinical hypothyroidism stable and well controlled with prescribed medications Review of Systems Constitutional: No fever, No chills, No fatigue. _ ENT: No TM drainage, No otalgia, no rhinorrhea, no sore throat Respiratory: No shortness of breath, No cough, No wheezing. _ Cardiovascular: no lightheadedness/presyncope, No chest pain, No palpitations. _ Gastrointestinal: No nausea, No vomiting, No diarrhea, No constipation, No heartburn, No abdominal pain ._ Musculoskeletal: No back pain, No neck pain,+ right kneejoint pain, No muscle pain, No decreased range of motion, No trauma. _ Integumentary: No rash, No pruritus, No breakdown. _ Neurologic: Alert and oriented X4, No abnormal balance, No numbness, No tingling, No headache. _ Physical Exam Vitals & Measurements T:36.8C BP:130/72 SpO2:98% HT:158.0cm WT:67.000kg(Dosing) WT:67.0kg BMI:26.84 PHQ2 Data(Data Documented on:05/17/2023 07:19) Emotional health assessment NEGATIVE PHYSICAL EXAMINATION: GENERAL APPEARANCE: The patient is well-nourished andin no acute distress. HEENT: Normocephalic and atraumatic. No scleral icterus. Pupils are equal, round, and reactive to light and accommodation. No conjunctival injection is noted. Oropharynx is clear. Mouth revealed gooddentition, no lesions. Tympanic membranes are clear. NECK: Supple. Trachea is midline. No evidence of thyroid enlargement. No lymphadenopathy or tenderness. CHEST: Symmetric. Nontender to palpation. LUNGS: Breath sounds are equal and clear bilaterally. No wheezes, rhonchi, or rales. HEART: Regular rate and rhythm with normal S1 and S2. No murmurs, gallops, or rubs. ABDOMEN: Soft, flat, and benign. No mass, tenderness, guarding, or rebound. No organomegaly or hernia. Bowel sounds are present. No CVA tenderness or flank mass. EXTREMITIES: No cyanosis, clubbing, or edema. NEUROLOGIC: No focal sensory or motor deficits are noted. Gait is normal. Cranial nerves II throughXII are intact. Deep tendon reflexes are intact. PSYCHIATRIC: The patient is awake, alert, and oriented x3. Recent and remote memory is intact. Appropriate mood and affect. SKIN: Warm, dry, and well perfused. Good turgor. Assessment/Plan 1.Preoperative examination 2.Preop testing 3.Osteoarthritis of right knee ECG in office : NSR 72 bpm, VR 72, AR 72, No acute or ischemic ST-T changes appreciated- Normal ECG CXR 04/25/23- no acute chest disease Per-op labs : PT 10.4, INR 0.9, PTT 27 BUN 17, Cr 0.71 GFR 95.2 BMP unremarkable, CBC unremarkable UA unremarkable Blood type O +, Ab negative Pt was informed to hold ASA, Celebrex starting today and no OTC NSAIDS til after procedure Tylenol XS 2 bid prn Tramadol 100 mg q 6hr prn 4.Anxiety Pt relates increased stress, anxiety with procedure Provided Rx for lorazepam 0.5 mgbid prn 5.Hypertension Stable Continue amlodipine 5 mg daily Continue lisinopril 20 mg daily Furosemide 20 mg daily, hold am of surgery 6.Prediabetes Stable , most recent HgbA1c 5.3 Pt is medically and cleared for above procedure as scheduled Problem List/Past Medical History Ongoing Anxiety Aortic valve stenosis Carotid bruit Chronic constipation GERD without esophagitis Hiatal hernia Hx of shoulder replacement Hyperlipidemia Hypertension Insomnia Lumbar radiculopathy Lumbar stenosis with neurogenic claudication MR (mitral regurgitation) Osteoarthritis of right knee Prediabetes Preop testing Preoperative examination Rosacea Subclinical hyperthyroidism Procedure/Surgical History back surgery| Service Date: 11/2018left knee replacement revision| Service Date: 03/04/2018Total knee replacement| Service Date: 12/2015Total knee replacement| Service Date: 01/2015Surgery| Service Date: 10/2011Spinal fusion| Service Date: 01/2011Surgery| Service Date: 05/2010Carpal tunnel release| Service Date: 2002Total hysterectomy| Service Date: 1984Cesarean section| Service Date: 1976Cesarean section| Service Date: 1969Cesarean section| Service Date: 1967To right shoulder replacementHistory of nasal sinus surgerySurgeryExcision of ganglion cystExcision of lipomaSurgery Medications albuterol(Ventolin HFA) amLODIPine(amLODIPine 5 mg oral tablet), 1 tab, PO, Daily celecoxib(CeleBREX 200 mg oral capsule), 200 mg= 1 cap, PO, bid, PRN cetirizine(cetirizine 10 mg oral tablet) ezetimibe(ezetimibe 10 mg oral tablet), See Instructions, 1 refills furosemide(furosemide 20 mg oral tablet), 20 mg= 1 tab, PO, Daily, 1 refills lisinopril(lisinopril 20 mg oral tablet), 1 tab, PO, qAM LORazepam(LORazepam 0.5 mg oral tablet), 0.5 mg= 1 tab, PO, bid, PRN omeprazole(omeprazole 40 mg oral delayed release capsule), See Instructions traMADol(traMADol 100 mg oral tablet) traZODone(traZODone 300 mg oral tablet), 1 tab, PO, qhs triamcinolone topical(triamcinolone 0.1% topical ointment), 1 appl, topical, qhs Allergies nitrofurantoin (Moderate)Drug-induced nausea and vomiting tetracyclines (Mild)Gastrointestinal symptom Macrobidsevere nausea, vomiting PCN (penicillin)rash, hives RelafenSevere nausea and vomiting that has lasted a long time...., Chest pain diclofenacPropensity to adverse reaction nabumetone pseudoephedrinecrawling under skin sulfa drugsrash, hives tetracyclinevomiting Social History Smoking Status Never smoked cigarettes Alcohol - Medium Risk Substance Abuse - Denies Substance Abuse Tobacco - Denies Tobacco Use Family History Hypertension: Sister and Brother. Health Status Family Member(s) Immunizations Vaccine Date Status influenza virus vaccine, inactivated 11/10/2021 Recorded Comments : [employer] Lead: [employer] influenza virus vaccine, inactivated 12/05/2020 Recorded Comments : [employer] Lead: [employer] influenza virus vaccine, inactivated 12/05/2020 Recorded pneumococcal 13-valent vaccine 08/04/2019 Recorded Comments : Unit: Unknown [employer] Lead: [employer] [place] pneumococcal 23-valent vaccine 11/29/2017 Recorded Comments : Unit: Unknown [employer] Lead: [employer] meningococcal conjugate vaccine 05/14/2008 Recorded haemophilus b conjugate (PRP-T) vaccine 09/14/1998 Recorded diphtheria/tetanus/pertuss, acel (DTaP) 09/14/1998 Recorded measles/mumps/rubella virus vaccine 09/14/1998 Recorded poliovirus vaccine, inactivated 09/14/1998 Recorded haemophilus b conjugate (PRP-T) vaccine 08/12/1996 Recorded diphtheria/tetanus/pertuss, acel (DTaP) 08/12/1996 Recorded hepatitis B pediatric vaccine 08/12/1996 Recorded measles/mumps/rubella virus vaccine 03/18/1996 Recorded poliovirus vaccine, inactivated 03/18/1996 Recorded haemophilus b conjugate (PRP-T) vaccine 04/19/1994 Recorded diphtheria/tetanus/pertuss, acel (DTaP) 04/19/1994 Recorded diphtheria/tetanus/pertuss, acel (DTaP) 02/14/1994 Recorded haemophilus b conjugate (PRP-T) vaccine 02/14/1994 Recorded poliovirus vaccine, inactivated 02/14/1994 Recorded diphtheria/tetanus/pertuss, acel (DTaP) 12/09/1993 Recorded haemophilus b conjugate (PRP-T) vaccine 12/09/1993 Recorded hepatitis B pediatric vaccine 12/09/1993 Recorded poliovirus vaccine, inactivated 12/09/1993 Recorded hepatitis B pediatric vaccine 10/25/1993 Recorded Recommendations Health Maintenance Pending(in the next year) OverDue Adult Influenza Vaccine due08/04/22and every 1year Due Adult COVID-19 Vaccination due05/17/23Unknown Frequency Adult Social Determinants of Health Screening due05/17/23Unknown Frequency Adult Tdap/Td Vaccine due05/17/23Unknown Frequency Hepatitis C Screening due05/17/23One-time only Medicare Annual Wellness Visit due05/17/23and every 1year Osteoporosis Screening due05/17/23One-time only Shingles Vaccine due05/17/23One-time only Satisfied(in the past 1 year) Satisfied Body Mass Index on05/17/23.Satisfied by JENNIFER Brothers Jayla Electronic Signature on File Electronically Reviewed/Signed by: Cortez Juarez DO Author Signature Dt/Tm:05/17/2023 01:13 PM Family Medicine DTM Patient Care team information Care Team Related Persons Name: CORTEZ PEDRO Address: home [address] [place] [id number] Name: CORTEZ PEDRO Address: [address] [place] [id number]"
[2023-05-21] MEDS: TRANEXAMIC ACID 1,000 MG **IV Intra-op IV SCH (13:20)
--- NOTE | 2023-05-21 13:39 | Operative Report ---
Post Operative Report Pre & Post Diagnosis Operation Date: 05/21/23 11:10 Pre-Op Diagnosis: Right Knee Osteoarthritis Post-Op Diagnosis: Right Knee Osteoarthritis, osteonecrosis medial femoral condyle possible insufficiency fracture with collapse medial femoral condyle, multiple loose bodies, synovitis with articular debris within the knee joint synovial tissue. I identified the patient and participated in the time-out.: Yes Procedure Operation Date: 05/21/23 11:10 Actual Procedures p Right Total Knee Arthroplasty(Right), removal multiple loose bodies with partial synovectomy, jd and Acticoat superficial wound VAC application- Leonard Huang MD Surgeon Leonard Huang MD Aerospace Project Engineer Terry NULL Estimated Blood Loss 5 Findings Consistent with Post-Op Diagnosis Specimens Bone cuts Drains 2 Hemovac Anesthesia Type General Regional Complications none Disposition Disposition: Recovery Room Indications Radiographs [id number] female with chronic progressive osteoarthritis right knee. That she has medial compartment osteoarthritis [id number] and patellofemoral osteoarthritis. She has a revision knee replacement on her opposite knee. Description of Procedure Patient was taken to the operating room placed supine on the operating table and anesthetized under general regional block anesthesia. Exam under anesthesia demonstrated slight flexion contracture with flexion to 115 degrees and stiff knee with moderately large synovitis. There was no medial compartment pseudolaxity and had some relative laxity of the lateral collateral ligament. A pneumatic tourniquet was placed about the thigh of the right lower extremity. The right lower extremity was prepped and draped in usual sterile fashion. The leg was elevated exsanguinated with an Esmarch bandage and the pneumatic tourniquet was raised to 300 mm mercury. An anterior incision was made across the right knee. The skin was incised longitudinally subcutaneous flaps were elevated and an incision was made through the medial retinaculum extending up into the mid third of the quadriceps tendon and extended down to the medial tibial tubercle. Intra-articular findings demonstrated the medial femoral condyle had collapsed and there was fragmented consistent with either an insufficiency fracture or possible osteonecrosis. There were multiple loose bodies throughout the knee joint or multiple small fragments of articular cartilage throughout the synovium in the knee joint. Patellofemoral joint had grade 3 closed grade IV chondromalacia in that space. The medial tibial was grade 4. Cruciate ligaments were still intact. There was a chronic medial meniscus tear.. The knee was exposed by excising the infrapatellar fat pad, exc ising the meniscal remnants and anterior cruciate ligament. All loose bodies were resected and some of the synovium was removed along with the embedded loose bodies. The fat pad over the anterior femur was resected for placement of the component in that area. The lateral synovial bands were release. The femur was exposed. The custom femoral cutting block was pinned in position. The distal femoral cutting block was applied. +2 additional cut was made due to the flexion contracture. The distal femoral cut was made with the oscillating saw. The size 7, 4-in-1 cutting block was placed. The anterior and posterior chamfer cuts were made. The knee was extended and a subperiosteal peel lateral release was performed around the patella. The patella width was measured and width was reproduced using freehand cut technique. The 32 millimeter symmetrical patella was used. 3 drill holes are made for the pegs. The tibia was exposed. A custom tibial cutting block was positioned and drill holes were made for the cutting guide. Cutting guide was placed and the proximal cut was made with the oscillating saw. All osteophytes were resected. The lamina parts room assistant was used to assess ligamentous balance and the ligaments were balanced in extension and flexion. Medial and posterior medial and pie crusting MCL releases were required. The tibia was reexposed and measured for a size D tibial component. This was externally rotated in line with the tibial tubercle and the fixation pins were drilled. The proximal tibia was fashioned with the drill and punch. The size 7 femoral trial was inserted. Notch cutting devices were used and the collet was placed. The trial CPS inserts were used. The 12 mm insert gave balanced ligaments through full range of motion. The patella tracked centrally. the trials were removed. The orthomix anesthetic cocktail was injected per protocol. The knee was then copiously irrigated with pulsatile lavage saline solution. The final components were cemented with Refobacin bone cement. The final components were 7 standard persona posterior stabilized femoral component, D right tibial component, a 12 right CPS tibial polyethylene and a 32 mm symmetrical patella polyethylene component. After the cement cured with the knee in full extension the xperience irrigation was utilized . 2 drains were brought out laterally and connected to a Hemovac. The quadriceps tendon and medial retinaculum were closed with interrupted [id number] #1 Vicryl sutures. The knee was taken through a full range of motion which was 0 through 125 degrees and the repair was secure. The subcutaneous tissues were closed with 2-0 Vicryl sutures and skin was closed with surgical denise.A jd and Acticoat superficial wound VAC was applied and the patient tolerated the procedure well. Terry NULL my physician assistant sales director participated as first assistant manager and was an integral part in all aspects of the procedure, he assisted in soft tissue retraction, instrument management ,leg positioning, the closure, application superficial wound VAC and will participate in the postoperative care of the patient. I attest to the content of the Intraoperative Record and any orders documented therein. Any exceptions are noted below.
[2023-05-21] MEDS: fentaNYL citrate PF 100 MCG/2 ML VIAL IV PRN (14:23)
[2023-05-21] MEDS: HYDROmorphone INJ 1 MG/ML SYRINGE IV PRN (14:33)
--- NOTE | 2023-05-21 14:43 | Anesthesiology Progress Note ---
Date of Service May 21, 2023 Anesthesia Post Procedure Vital Signs Vital Signs: Temp Pulse Resp BP BP Pulse Ox O2 Del Method 05/21/23 14:35 98 H 12 113/69 96 Nasal Cannula 05/21/23 14:25 106 H 18 140/69 96 Nasal Cannula 05/21/23 14:15 103 H 14 127/68 98 Nasal Cannula 05/21/23 14:05 36.2 C L 105 H 13 141/75 H 94 Room Air 05/21/23 10:13 36.6 C 84 18 148/75 H 99 Room Air O2 Flow Rate 05/21/23 14:35 2 05/21/23 14:25 2 05/21/23 14:15 2 05/21/23 14:05 05/21/23 10:13 Pain Intensity Right Knee: Pain Intensity: 5 Transfer of Care Handoff Completed per policy Notes Mental Status: alert / awake / arousable Patient Amnestic to Procedure: Yes Nausea / Vomiting: adequately controlled Pain: adequately controlled Airway Patency, RR, SpO2: stable & adequate BP & HR: stable & adequate Hydration State: stable & adequate Anesthetic Complications: no major complications apparent and Pt Satisfied with anesthetic care
[2023-05-21] MEDS ORDERED: ALUMINUM/MAGNESIUM SUSP 30 ML UDC PO PRN (15:13)
[2023-05-21] MEDS ORDERED: HYDROmorphone INJ 0.5 MG/0.5 ML SYR IV PRN (15:13)
[2023-05-21] MEDS ORDERED: MAGNESIUM HYDROXIDE SUSP 30 ML UDC PO PRN (15:13)
[2023-05-21] MEDS ORDERED: diphenhydrAMINE Capsule 25 MG CAP PO PRN (15:13)
[2023-05-21] MEDS ORDERED: bisacodyL 10 MG SUPP PR PRN (15:13)
[2023-05-21] MEDS ORDERED: NALOXONE HCL 0.4 MG/1 ML VIAL/CARP IV PRN (15:13)
[2023-05-21] MEDS ORDERED: CYCLOBENZAPRINE HCL 10 MG TAB PO PRN (15:13)
[2023-05-21] MEDS ORDERED: KETOROLAC TROMETHAMINE 15 MG/ML VIAL IV PRN (15:13)
[2023-05-21] MEDS ORDERED: METOCLOPRAMIDE HCL INJ 5 MG/ML 2 ML VIAL IV PRN (15:13)
[2023-05-21] MEDS: SODIUM CHLORIDE 0.9% 1,000 ML IV SCH (15:46)
--- NOTE | 2023-05-21 15:58 | XRay Report ---
XR knee RT 1 or 2V routine CLINICAL HISTORY: Postoperative evaluation. COMPARISON: None FINDINGS: Alignment of the total right knee arthroplasty is anatomic. There is no periprosthetic fra cture or unexpected radiopaque foreign body. Surgical drain is in place. There are skin denise. IMPRESSION: Expected findings following total right knee arthroplasty. ACT 112: Negative or not required by law. Electronically signed by: Sean Valerio M.D. 05/21/2023 3:57 PM
[2023-05-21] MEDS: TRANEXAMIC ACID / 0.7% NACL 1,000 MG/100 ML BAG IV SCH (19:49)
[2023-05-21] MEDS: SENNA 8.6 MG TAB PO SCH (19:50)
[2023-05-21] MEDS: DOCUSATE SODIUM 100 MG CAP PO SCH (19:50)
[2023-05-21] MEDS: ASPIRIN 81 MG ECTAB PO SCH (19:51)
[2023-05-21] MEDS ORDERED: ceFAZolin 2000MG 2,000 MG/15 ML SYR IV SCH (20:30)
[2023-05-21] MEDS: VANCOMYCIN HCL 1,000 MG in SODIUM CHLORIDE 0.9% 250 ML IV ONE (21:31)
[2023-05-22] MEDS: oxyCODONE HCL IR 5 MG TAB (IMMEDIATE RELEASE) PO PRN (01:45)
[2023-05-22 06:32] LABS: BUN Creatinine Ratio 17.8 (10-20); Calcium 8.9 mg/dl (8.6-10.3); Est GFR (African American) 92.1 ml/min; Est GFR (Non-African American) 79.4 ml/min; Potassium 4.5 mmol/L (3.5-5.1)
[2023-05-22 06:33] LABS: Hematocrit (blood only) 30.9 % (37.0-47.0); Hemoglobin 9.7 g/dl (12.0-16.0); Mean Corpuscular Hemoglobin 27.2 pg (25.0-34.0); Mean Corpuscular Hgb Conc 31.4 g/dL (32.0-36.0); Mean Corpuscular Volume 86.8 fL (80.0-100.0); Mean Platelet Volume 11.8 fL (9.4-12.4); Platelet Count 198 K/uL (130-400); RDW Coefficient of Variation 13.7 % (11.5-14.5); RDW Standard Deviation 43.3 fL (36.4-46.3); Red Blood Count 3.56 M/uL (4.20-5.40); White Blood Count 8.57 K/ul (4.8-10.8)
--- NOTE | 2023-05-22 07:58 | Orthopedic Progress Note ---
Date of Service May 22, 2023 Assessment & Plan (1) FH: total knee replacement: Plan: Postop day 1 total knee replacement. Patient was noted to likely have osteonecrosis medial femoral condyle and significant synovitis and multiple loose bodies. Due to removal multiple loose bodies partial synovectomy likely some increased bleeding due to that and had 125 cc last shift from Hemovac. Hemovac will be required to stay in another day prior to removal. If patient can have home nursing set up and home PT then could be discharged as you will require home nursing to remove the drain tomorrow. Otherwise patient will require another day hospital stay and discharge tomorrow. Admission and Anticipated Discharge Date Admission Date: May 21, 2023 Subjective Moderate soreness. Patient was out of bed several times and did fairly well. Review of Systems Review of Systems: Noncontributory Physical Exam Physical Exam: Patient holding knee in slight flexed position for comfort. Dressing intact and dry. Circulation sensorimotor exam intact. Results & Data Vital Signs (Past 12 Hours) Vital Signs Temp Pulse Resp BP Pulse Ox O2 Del Method 05/22/23 04:11 37.2 C 84 14 138/63 93 Room Air 05/21/23 23:15 36.9 C 92 H 16 121/69 94 Room Air Laboratory Results Hemoglobin 9.7, output drain 125 cc Diagnostic Findings X-rays well aligned total knee replacement cemented.
[2023-05-22] MEDS: MULTIVITAMIN TAB PO SCH (08:11)
[2023-05-22] MEDS: lisinopril 20 MG TAB PO SCH (08:11)
[2023-05-22] MEDS: PANTOprazole 40 MG TAB PO SCH (08:11)
[2023-05-22] MEDS: EZETIMIBE 10 MG TAB PO SCH (08:11)
[2023-05-22] MEDS: amLODIPine BESYLATE 5 MG TAB PO SCH (08:11)
--- NOTE | 2023-05-22 08:31 | Hospitalist Consultation ---
Date of Consultation May 22, 2023 Assessment & Plan (1) Osteoarthritis of knee: s/p Right Total Knee Arthroplasty(Right), removal multiple loose bodies with partial synovectomy, jd and Acticoat superficial wound VAC application- Leonard Huang MD EBL 5cc WBC wnl, afebrile Hgb 11.8--> 9.7, acute blood loss anemia from surgery as well as dilutional aspect from IVF. Hemovac output 125cc + 20cc and monitoring Pain control, bowel regimen, PT/OT per primary service DVT proph: ASA 81mg PO BID. Monitor for need to increase PPI to BID on celebrex but appears on at home as well Dispo: Per primary, "If patient can have home nursing set up and home PT then could be discharged as you will require home nursing to remove the drain tomorrow" --> patient reported planning on staying until tomorrow. Asymptomatic w/ hgb drop at this time and will continue to monitor hemovac output, CBC in AM (2) Hypertension: Chronic, stable. BP 133/72, renal function stable and continues on home amlodipine 5mg, lisinopril 20mg daily Monitor (3) Hypercholesteremia: continue home zetia 10mg (4) Aortic stenosis: Echo 06/2022: Mild to moderate aortic stenosis (EZEQUIEL 1.32cm2, MG 15mmhg) No volume overload on exam, no symptoms. output f/u for screening/monitoring Plan Thank you for allowing hospitalist service to participate in the care of Ms Thakur. Hospitalist service will follow along. Please call with any questions/concerns. Supervising Physician Co-Signing Physician Notes The patient was seen by me. The chart was reviewed. Case discussed with TENNILLE Mensah. Agree with assessment and plan History of Present Illness Reason for Consultation: medical management Requesting Physician: Dr Huang Attending Physician: Leonard Huang MD History of Present Illness 77yo female with PMHx significant for HTN, HLD, pre-DM, aortic stenosis, subclinical hypothyroidism presented for RIGHT TKA with Dr Huang on 05/20. EBL 5cc Evaluated POD#1 in room 351-1, just getting done working with OT and just had prior completed therapy with PT. Pain increased but controlled with ordered medications. No syncope w/ ambulation w/ therapy, no chest pain/shortness of breath, abdominal pain, nausea or vomiting. Anticipating dc tomorrow if hemovac decreased. Has had prior L knee and shoulder replacement in the past. Questions/concerns addressed at this time. Allergies Allergy/AdvReac Type Severity Reaction Status Date / Time nitrofurantoin Allergy Severe Nausea Verified 05/21/23 10:07 [From Macrobid] Penicillins Allergy Intermediate Hives Verified 05/21/23 10:07 tetracycline Allergy Intermediate Vomiting Verified 05/21/23 10:07 pseudoephedrine Allergy Mild Rash Verified 05/21/23 10:07 Sulfa (Sulfonamide Allergy Mild Hives Verified 05/21/23 10:07 Antibiotics) nabumetone [From Relafen] AdvReac Severe Chest Pain Verified 05/21/23 10:07 Home Medications Medication Instructions Recorded Confirmed Type amlodipine 5 mg tablet (Norvasc) 5 mg PO QAM 04/13/23 05/21/23 History aspirin 81 mg tablet,delayed 81 mg PO QAM 04/13/23 05/21/23 History release celecoxib 200 mg capsule (Celebrex) 200 mg PO BID 04/13/23 05/21/23 History cyclobenzaprine 10 mg tablet 10 mg PO TID PRN Pain (Scale Score 04/13/23 05/21/23 History 1-3) ezetimibe 10 mg tablet (Zetia) 10 mg PO QAM 04/13/23 05/21/23 History lisinopril 20 mg tablet 20 mg PO QAM 04/13/23 05/21/23 History omeprazole 40 mg capsule,delayed 40 mg PO QAM 04/13/23 05/21/23 History release trazodone 300 mg tablet,extended 300 mg PO HS 04/13/23 05/21/23 History release 24 hr acetaminophen 500 mg tablet 1,000 mg (2 x 500 mg) PO Q8 14 05/21/23 Rx (Tylenol Extra Strength) days #84 tabs aspirin 81 mg tablet,delayed 81 mg PO BID 30 days #60 tabs 05/21/23 Rx release polyethylene glycol 3350 17 gram 17 g PO DAILY PRN constipation #5 05/21/23 Rx oral powder packet (Miralax) ea Patient History Medical History Aortic stenosis Echo 06/2022: Mild to moderate aortic stenosis (EZEQUIEL 1.32cm2, MG 15mmhg) Hypercholesteremia Hypertension CSF leak Hx of spinal tap (age 30). Patient cannot remember the reason that they did the spinal tap but states that she was having issues with migraines at the time and thought this might have been related to the reason for doing it. She states there was procedure complications that resulted in CSF leaking/complicated hospital course. Basal cell carcinoma (BCC) Under surveillance History of COVID-19 2020- Covid + bacterial PNA, hospitalization x 1 month ([facility]) > resolved Chronic pain Osteoarthritis GERD (gastroesophageal reflux disease) Surgical History Nausea and vomiting after administration of anesthetic agent History of esophagogastroduodenoscopy (EGD) History of colonoscopy History of basal cell carcinoma (BCC) excision x2, face and chest Hx of section x3 Hx of total hysterectomy Hx of sinus surgery x3 Hx of shoulder surgery left AC joint impingement History of decompression of both ulnar nerves History of carpal tunnel surgery of right wrist Hx of bilateral cataract extraction Hx laparoscopic cholecystectomy History of total replacement of right shoulder joint Hx of left knee surgery patellar surgery Hx of left knee surgery left total knee revision History of left knee replacement History of back surgery x3 most recent 11/2022 Social History Smoking Status: Never smoker Second Hand Exposure: No; Do You Dip or Chew Tobacco: No; Tobacco Cessation Education Requested by Patient: No Hx Alcohol Use: Yes Hx Substance Use: No Preferred Language: Uzbek Communication Ability: Effective Per Diem Registered Nurse Required: No Beliefs That Will Affect Care: None Current Living Situation: Alone Other Information That Helps Us Care for You: No Feels Safe at Home: Yes Safety Concerns: Feels Safe At This Time Assistive Devices: Cane and Walker Physical Exam Physical Exam: General: WD/WN female getting back to bed from therapy, NAD Head atraumatic, normocephalic, mmm, trachea midline Resp; even/unlabored, no w/c/r, on room air CV: RRR, +systolic murmur, no pitting edema/calf tenderness GI: +BS, soft/NT : no salgado MSK/Neuro: RIGHT knee w/ hal wrap in place, hemovac bloody drainage, pulses palpable, calves nontender, strength equal dorsi/plantar flexion prior L knee scar well healed Psych: AOx3, cooperative with exam Results & Data Results & Data Vital Signs (Past 12 Hours) Vital Signs Temp Pulse Resp BP Pulse Ox O2 Del Method 05/22/23 07:54 37.1 C 81 16 133/72 96 Room Air 05/22/23 04:11 37.2 C 84 14 138/63 93 Room Air 05/21/23 23:15 36.9 C 92 H 16 121/69 94 Room Air Laboratory Results 05/22/23 Range/Units 06:00 WBC 8.57 (4.8-10.8) K/ul RBC 3.56 L (4.20-5.40) M/uL Hgb 9.7 L (12.0-16.0) g/dl Hct 30.9 L (37.0-47.0) % MCV 86.8 (80.0-100.0) fL MCH 27.2 (25.0-34.0) pg MCHC 31.4 L (32.0-36.0) g/dL RDW Std Deviation 43.3 (36.4-46.3) fL RDW Coeff of Gino 13.7 (11.5-14.5) % Plt Count 198 (130-400) K/uL MPV 11.8 (9.4-12.4) fL Sodium 138 (136-145) mmol/L Potassium 4.5 (3.5-5.1) mmol/L Chloride 107 (98-107) mmol/L Carbon Dioxide 26 (21-32) mmol/L Anion Gap 5 (3-11) BUN 13 (6-23) mg/dl Creatinine 0.73 (0.6-1.2) mg/dl Est Cr Clr Drug Dosing 58.0 ml/min Est GFR ( Amer) 92.1 ml/min Est GFR (Non-Af Amer) 79.4 ml/min BUN/Creatinine Ratio 17.8 (10-20) Glucose 104 H (70-99(Fasting)) mg/dl Calcium 8.9 (8.6-10.3) mg/dl Diagnostic Findings Knee X-Ray 05/21/23 14:23 XR knee RT 1 or 2V routine CLINICAL HISTORY: Postoperative evaluation. COMPARISON: None FINDINGS: Alignment of the total right knee arthroplasty is anatomic. There is no periprosthetic fracture or unexpected radiopaque foreign body. Surgical drain is in place. There are skin denise. IMPRESSION: Expected findings following total right knee arthroplasty. ACT 112: Negative or not required by law. Electronically signed by: Sean Valerio M.D. 05/21/2023 3:57 PM PG Care Time/CCT Total # of Minutes Spent Total Time Spent with Patient: Total time spent is greater than 50% in coordination of care (as documented) at patient's floor/unit and/or counseling patient: Coding Level of Care Code 69517 IN/OBS CONSULT LVL 3,45M Diagnoses Primary osteoarthritis of right knee M17.11 Laterality: right Osteoarthritis type: primary Hypertension I10 Hypercholesteremia E78.00 Aortic stenosis I35.0 (1) Osteoarthritis of knee Laterality: right Osteoarthritis type: primary Qualified Code(s): M17.11 - Unilateral primary osteoarthritis, right knee
[2023-05-22] MEDS: CeleBREX 200 MG CAP PO SCH (20:49)
[2023-05-23] MEDS: ONDANSETRON INJ 2 MG/ML 2 ML VIAL IV PRN (03:36)
[2023-05-23] MEDS: ONDANSETRON 4 MG OD TAB PO PRN (04:27)
--- NOTE | 2023-05-23 06:51 | Orthopedic Progress Note ---
Date of Service May 23, 2023 Assessment & Plan (1) FH: total knee replacement: Plan: Postop day 2 status post right total knee arthroplasty PT/OT protocols. Weightbearing as tolerated. DVT prophylaxis-aspirin p.o. twice daily, SCDs, LISA mcmanus Pain management as written. DC planning-patient will have dressing change and Hemovac removal today. Plan for discharge to home today. With home health services. Admission and Anticipated Discharge Date Admission Date: May 21, 2023 Subjective Postop day 2 Patient sleeping upon arrival. Easily awoken. No complaints this morning. Patient states that she had some pain during the night however she got up with nursing staff and they ambulated the hallways which helped. No other concerns at this time. Denies shortness of breath, chest pain, lightheadedness. She is hoping to go home today. Physical Exam Physical Exam: Dressings are clean, dry, and intact. Calves are soft nontender. Neurovascular intact. Toes are mobile. Hemovac drainage is minimal. Results & Data Vital Signs (Past 12 Hours) Vital Signs Temp Pulse Resp BP Pulse Ox O2 Del Method 05/22/23 19:27 37.0 C 89 14 124/67 95 Room Air 05/22/23 19:25 Room Air
[2023-05-23 07:39] LABS: Hematocrit (blood only) 33.7 % (37.0-47.0); Hemoglobin 10.6 g/dl (12.0-16.0); Mean Corpuscular Hemoglobin 27.5 pg (25.0-34.0); Mean Corpuscular Hgb Conc 31.5 g/dL (32.0-36.0); Mean Corpuscular Volume 87.5 fL (80.0-100.0); Platelet Count 191 K/uL (130-400); RDW Coefficient of Variation 14.3 % (11.5-14.5); RDW Standard Deviation 45.2 fL (36.4-46.3); Red Blood Count 3.85 M/uL (4.20-5.40); White Blood Count 4.81 K/ul (4.8-10.8)
[2023-05-23 07:43] LABS: BUN Creatinine Ratio 19.4 (10-20); Calcium 9.2 mg/dl (8.6-10.3); Creatinine Clr Calc Pharmacy 63.2 ml/min; Est GFR (African American) 98.3 ml/min; Est GFR (Non-African American) 84.8 ml/min; Magnesium 1.6 mg/dl (1.7-2.4); Potassium 4.2 mmol/L (3.5-5.1)
--- NOTE | 2023-05-23 08:35 | Hospitalist Progress Note ---
Date of Service May 23, 2023 Assessment & Plan (1) Osteoarthritis of knee: Plan: s/p Right Total Knee Arthroplasty(Right), removal multiple loose bodies with partial synovectomy, jd and Acticoat superficial wound VAC application- Leonard Huang MD EBL 5cc WBC wnl, afebrile Hgb 11.8--> 9.7, acute blood loss anemia from surgery as well as dilutional aspect from IVF. Hemovac output 125cc + 20cc -WBC wnl, afebrile -Hgb improved/stable 10.6 Pain control, bowel regimen, PT/OT per primary service DVT proph: ASA 81mg PO BID. Monitor for need to increase PPI to BID on celebrex but appears on at home as well Per primary, planning for dc this afternoon (2) Hypertension: Plan: Chronic, stable. Continue home amlodipine 5mg, lisinopril 20mg daily (3) Hypercholesteremia: Plan: chronic/stable continue home zetia 10mg (4) Aortic stenosis: Plan: Echo 06/2022: Mild to moderate aortic stenosis (EZEQUIEL 1.32cm2, MG 15mmhg) No volume overload on exam, no symptoms. output f/u for screening/monitoring (5) Hypomagnesemia: Plan: 1.6 on check, 1gm IV ordered but IV infiltrated/going home today and ordered PO. Patient on oral at home, instructed to continue as above outpt pcp f/u Plan Thank you for allowing hospitalist service to participate in the care of Ms Thakur. Hospitalist service will sign off at this time. Please call with any questions/concerns. Admission and Anticipated Discharge Date Admission Date: May 21, 2023 Supervising Physician Co-Signing Physician Notes The patient was not seen by me. The chart was reviewed. Case discussed with TENNILLE Mensah. Agree with assessment and plan Subjective Eval this morning, just done working with PT. Pain controlled with ordered medications. No chest pain, shortness of breath, lightheaded/dizziness. Occasional Ortega horses at baseline, checked mag and low but IV infiltrated and discussed PO. SHe mentioned she is on this daily -- to double for next 2-3 days then resume usual dosing and have f/u outpt. Passing gas, abd soft/NT. TO continue bowel regimen on pain meds at home. Physical Exam Physical Exam: General: WD/WN female sitting up in bed, just got done working with therapy, NAD Head atraumatic, normocephalic, mmm, trachea midline Resp; even/unlabored, no w/c/r, on room air CV: RRR, +systolic murmur, no pitting edema/calf tenderness GI: +BS, soft/NT : no salgado MSK/Neuro: RIGHT knee w/ hal wrap in place, hemovac decreased bloody drainage, pulses palpable, calves nontender, strength equal dorsi/plantar flexion prior L knee scar well healed Psych: AOx3, cooperative with exam Results & Data Results & Data Vital Signs (Past 12 Hours) Vital Signs Temp Pulse Resp BP Pulse Ox O2 Del Method 05/23/23 07:05 36.7 C 83 16 152/73 H 97 Room Air Laboratory Results 05/23/23 Range/Units 06:51 WBC 4.81 (4.8-10.8) K/ul RBC 3.85 L (4.20-5.40) M/uL Hgb 10.6 L (12.0-16.0) g/dl Hct 33.7 L (37.0-47.0) % MCV 87.5 (80.0-100.0) fL MCH 27.5 (25.0-34.0) pg MCHC 31.5 L (32.0-36.0) g/dL RDW Std Deviation 45.2 (36.4-46.3) fL RDW Coeff of Gino 14.3 (11.5-14.5) % Plt Count 191 (130-400) K/uL MPV 12.0 (9.4-12.4) fL Sodium 141 (136-145) mmol/L Potassium 4.2 (3.5-5.1) mmol/L Chloride 106 (98-107) mmol/L Carbon Dioxide 30 (21-32) mmol/L Anion Gap 5 (3-11) BUN 13 (6-23) mg/dl Creatinine 0.67 (0.6-1.2) mg/dl Est Cr Clr Drug Dosing 63.2 ml/min Est GFR ( Amer) 98.3 ml/min Est GFR (Non-Af Amer) 84.8 ml/min BUN/Creatinine Ratio 19.4 (10-20) Glucose 103 H (70-99(Fasting)) mg/dl Calcium 9.2 (8.6-10.3) mg/dl Magnesium 1.6 L (1.7-2.4) mg/dl Diagnostic Findings 05/23/23 Range/Units 06:51 WBC 4.81 (4.8-10.8) K/ul RBC 3.85 L (4.20-5.40) M/uL Hgb 10.6 L (12.0-16.0) g/dl Hct 33.7 L (37.0-47.0) % MCV 87.5 (80.0-100.0) fL MCH 27.5 (25.0-34.0) pg MCHC 31.5 L (32.0-36.0) g/dL RDW Std Deviation 45.2 (36.4-46.3) fL RDW Coeff of Gino 14.3 (11.5-14.5) % Plt Count 191 (130-400) K/uL MPV 12.0 (9.4-12.4) fL Sodium 141 (136-145) mmol/L Potassium 4.2 (3.5-5.1) mmol/L Chloride 106 (98-107) mmol/L Carbon Dioxide 30 (21-32) mmol/L Anion Gap 5 (3-11) BUN 13 (6-23) mg/dl Creatinine 0.67 (0.6-1.2) mg/dl Est Cr Clr Drug Dosing 63.2 ml/min Est GFR ( Amer) 98.3 ml/min Est GFR (Non-Af Amer) 84.8 ml/min BUN/Creatinine Ratio 19.4 (10-20) Glucose 103 H (70-99(Fasting)) mg/dl Calcium 9.2 (8.6-10.3) mg/dl Magnesium 1.6 L (1.7-2.4) mg/dl PG Care Time/CCT Total # of Minutes Spent Total Time Spent with Patient: Total time spent is greater than 50% in coordination of care (as documented) at patient's floor/unit and/or counseling patient: Coding Level of Care Code 11007 SUB INP/OBS CARE 25MIN Diagnoses Primary osteoarthritis of right knee M17.11 Laterality: right Osteoarthritis type: primary Hypertension I10 Hypercholesteremia E78.00 Aortic stenosis I35.0 Hypomagnesemia E83.42 (1) Osteoarthritis of knee Laterality: right Osteoarthritis type: primary Qualified Code(s): M17.11 - Unilateral primary osteoarthritis, right knee
[2023-05-23] MEDS: MAGNESIUM SULFATE / D5W 1 GM/100 ML BAG IV ONE (09:53)
[2023-05-23] MEDS: MAGNESIUM OXIDE 400 MG TAB PO SCH (11:11)
== END 2023-05-23 12:23 | disposition home health service (06) ==
LOC: 3W 09:21 → ASU 09:21

== ENCOUNTER 2023-11-20 08:53 | Inpatient (IN) ==
--- NOTE | 2023-10-29 16:15 | PAT Medication Instructions ---
Medication Instructions Date of Service October 29, 2023 Home Medications Medication Instructions Recorded polyethylene glycol 3350 17 gram 17 g PO DAILY PRN constipation #5 05/21/23 oral powder packet (Miralax) ea amlodipine 5 mg tablet (Norvasc) 5 mg PO QAM cyclobenzaprine 10 mg tablet 10 mg PO TID PRN ezetimibe 10 mg tablet (Zetia) 10 mg PO QAM lisinopril 20 mg tablet 20 mg PO QAM omeprazole 40 mg capsule,delayed release 40 mg PO QAM trazodone 300 mg tablet,extended release 24 hr 300 mg PO HS polyethylene glycol 3350 17 gram oral powder packet (Miralax) 17 g PO DAILY PRN cefdinir 300 mg capsule 300 mg PO BID meloxicam 15 mg tablet 15 mg PO QAM ASK your surgeon for instructions meloxicam 15 mg tablet 15 mg PO QAM DO NOT take the morning of surgery lisinopril 20 mg tablet 20 mg PO QAM polyethylene glycol 3350 17 gram oral powder packet (Miralax) 17 g PO DAILY PRN Take morning of surgery With a small sip of water, OTHERWISE NOTHING TO EAT OR DRINK AFTER MIDNIGHT: amlodipine 5 mg tablet (Norvasc) 5 mg PO QAM cyclobenzaprine 10 mg tablet 10 mg PO TID PRN(if needed) ezetimibe 10 mg tablet (Zetia) 10 mg PO QAM omeprazole 40 mg capsule,delayed release 40 mg PO QAM cefdinir 300 mg capsule 300 mg PO BID Take evening before surgery cyclobenzaprine 10 mg tablet 10 mg PO TID PRN(if needed) trazodone 300 mg tablet,extended release 24 hr 300 mg PO HS cefdinir 300 mg capsule 300 mg PO BID Other Notes If you have any questions please call us at [phone] or [phone] or [phone] or [phone]
--- NOTE | 2023-11-07 11:45 | Anesthesiology Consultation ---
Date of Service November 07, 2023 Assessment & Plan (1) Encounter for pre-operative examination: - Patient reported dental appointment today at 3 pm for dental repair of missing tooth, patient was instructed to contact Dr. Flores's office to discuss if there is any issue with this and planned surgery. - awaiting surgeon ordered medical clearance 11/08/23. PAT testing to be faxed to PCP, Dr. Cortez Juarez [facility]. Will also send optimization form regarding persistent nonproductive cough, anemia, leukopenia and thrombocytopenia. Chart Review Chart Review: Pending: Refer to Additional Notes / Consult section and Patient seen in Pre Admission Testing Teaching & Discussion Pre-Anesthesia Teaching/Discussion Notes: Instructed NPO after midnight before surgery, except medications with 15 cc of water. Medication instructions provided according to the PAT guidelines. History Surgery Operation Date: 11/20/23 07:45 Proposed Procedures p Revision Lumbar Decompression L1, T11-L3 Fusion with Spinal Cord Monitoring - Jaswant Flores, DO Height/Weight Height: 5 ft 1.5 in Weight: 64.5 kg Allergies Allergy/AdvReac Type Severity Reaction Status Date / Time nitrofurantoin Allergy Severe Nausea Verified 10/26/23 09:39 [From Macrobid] Penicillins Allergy Intermediate Hives Verified 10/26/23 09:39 tetracycline Allergy Intermediate Vomiting Verified 10/26/23 09:39 pseudoephedrine Allergy Mild Rash Verified 10/26/23 09:39 Sulfa (Sulfonamide Allergy Mild Hives Verified 10/26/23 09:39 Antibiotics) nabumetone [From Relafen] AdvReac Severe Chest Pain Verified 10/26/23 09:39 Medications Home Medications Medication Instructions Recorded Confirmed Last Taken amlodipine 5 mg tablet (Norvasc) 5 mg PO QAM 04/13/23 10/26/23 05/21/23 07:00 cyclobenzaprine 10 mg tablet 10 mg PO TID PRN Pain (Scale Score 04/13/23 10/26/23 Unknown 1-3) ezetimibe 10 mg tablet (Zetia) 10 mg PO QAM 04/13/23 10/26/23 05/20/23 08:00 lisinopril 20 mg tablet 20 mg PO QAM 04/13/23 10/26/23 05/21/23 07:00 omeprazole 40 mg capsule,delayed 40 mg PO QAM 04/13/23 10/26/23 05/21/23 07:00 release trazodone 300 mg tablet,extended 300 mg PO HS 04/13/23 10/26/23 05/20/23 02:00 release 24 hr 150 mg polyethylene glycol 3350 17 gram 17 g PO DAILY PRN constipation #5 05/21/23 10/26/23 Unknown oral powder packet (Miralax) ea meloxicam 15 mg tablet 15 mg PO QAM 10/26/23 10/26/23 Unknown Past Medical History Medical History (Updated 11/07/23 @ 14:57 by Althea Bahena PA-C) Anemia ongoing since 05/2023 to chart review Aortic stenosis Echo 06/2022: Mild to moderate aortic stenosis (EZEQUIEL 1.32cm2, MG 15mmhg), states does not follow with cardiology Basal cell carcinoma (BCC) several, removed Chronic pain CSF leak Hx of spinal tap (age 30). Patient cannot remember the reason that they did the spinal tap but states that she was having issues with migraines at the time and thought this might have been related to the reason for doing it. She states there was procedure complications that resulted in CSF leaking/complicated hospital course. GERD (gastroesophageal reflux disease) controlled, stable per pt History of blood transfusion during hysterectomy History of COVID-19 2020- Covid + bacterial PNA, hospitalization x 1 month ([facility]) > resolved Hypercholesteremia Hypertension controlled, stable per pt Osteoarthritis Patient denies h/o stroke, seizures, heart attack, heart failure, DM, blood clots/DVTs or blood transfusions. Exercise / Class Metabolic Activity II 4-5 Yardwork/Stairs/Walk up hill (denies chest discomfort or shortness of breath with one flight of stairs) Past Surgical History Surgical History (Updated 11/07/23 @ 12:03 by Althea Bahena PA-C) History of back surgery x3 most recent 11/2022 History of basal cell carcinoma (BCC) excision x2, face and chest History of carpal tunnel surgery of right wrist History of colonoscopy History of decompression of both ulnar nerves History of esophagogastroduodenoscopy (EGD) History of left knee replacement History of total replacement of right shoulder joint Hx laparoscopic cholecystectomy Hx of bilateral cataract extraction Hx of section x3 Hx of left knee surgery left total knee revision Hx of left knee surgery patellar surgery Hx of shoulder surgery left AC joint impingement Hx of sinus surgery x3 Hx of total hysterectomy Nausea and vomiting after administration of anesthetic agent denies needing scop patch Past Anesthesia History No Hx of Anesthesia Complications and No Family Hx of Anesthesia Complications History of PONV History of PONV (denies needing scop patch) and Hx of Motion Sickness Social History Smoking Status: Never smoker Do You Dip or Chew Tobacco: No Hx Alcohol Use: Yes alcohol intake frequency: holidays/special occasions only Hx Substance Use: Yes substance use type: does not use Review of Systems Patient denies chest pain, shortness of breath, dyspnea on exertion, snoring, witnessed apneas, fever, chills, cough, wheezing, or palpitations. Physical Exam Vital Signs Vitals BP 108/62 P 82 TEMP 97.7 SP02 99% on RA RESP 18 Physical Patient resting comfortably in chair in no acute distress, alert and oriented, responding appropriately throughout visit Full cervical extension range of motion without pain TMD 3.5 finger breadths Mallampati Score 2 Dentition: one [place] bridge, denies chipped or loose teeth, caps/crowns, implants or bridges Lungs: normal respiratory effort. Good air movement, clear throughout to auscultation, no adventitious breath sounds Cardiac: regular rate and rhythm, no murmurs noted Carotid arteries: negative bruit bilat Lab Results Anesthesia Preop Results Results Anesthesia Widget: WBC 2.36 K/ul (4.8-10.8) L 11/07/23 Hgb 10.6 g/dl (12.0-16.0) L 11/07/23 Hct 34.4 % (37.0-47.0) L 11/07/23 Plt 129 K/uL (130-400) L 11/07/23 Na 142 mmol/L (136-145) 11/07/23 K 3.6 mmol/L (3.5-5.1) 11/07/23 Cl 110 mmol/L (98-107) H 11/07/23 CO2 28 mmol/L (21-32) 11/07/23 BUN 21 mg/dl (6-23) 11/07/23 Creat 0.71 mg/dl (0.6-1.2) 11/07/23 Glucose Level 96 mg/dl (70-99(Fasting)) 11/07/23 PT 10.7 Seconds (9.0-12.0) 11/07/23 PTT 26 Seconds (21-31) 11/07/23 INR 1.0 (0.9-1.1) 11/07/23 Urine Color Yellow 11/07/23 Urine Appearance Clear (Clear) 11/07/23 Urine pH 6.0 (4.5-7.5) 11/07/23 Urine Specific [place] 1.025 (1.000-1.030) 11/07/23 Urine Protein Negative (Negative) 11/07/23 Urine Glucose (UA) Negative (Negative) 11/07/23 Urine Ketones Negative (Negative) 11/07/23 Urine Blood Negative (Negative) 11/07/23 Urine Nitrite Negative (Negative) 11/07/23 Urine Bilirubin Negative (Negative) 11/07/23 Urine Urobilinogen Negative (Negative) 11/07/23 Urine Leukocyte Esterase 1+ (Negative) H 11/07/23 Urine WBC (Auto) 0-5 /hpf (0-5) 11/07/23 Urine RBC (Auto) 3-5 /hpf (0-2) H 11/07/23 Urine Hyaline Casts (Auto) 0-2 /lpf (0-2) 11/07/23 Urine Epithelial Cells (Auto) 0-2 /hpf (0-2) 11/07/23 Urine Bacteria (Auto) None Seen (None Seen) 11/07/23 Blood Type O Positive 11/07/23 Antibody Screen NEGATIVE 11/07/23 Testing Electrocardiogram Date: 11/07/23 Sinus rhythm with competing accelerated junctional rhythm, rate 69 bpm Right axis deviation Lateral infarct, age undetermined Chest X-Ray Date: 04/25/23 No acute chest disease. Echocardiogram Date: 06/21/22 EF 60-64% Mild cLVH Mild to moderate aortic stenosis (EZEQUIEL 1.32 cm2/mean gradient 15 mmHg) Mild mitral regurgitation Trace to mild tricuspid regurgitation Mild LA dilatation, resolved since previous study All LV wall segments contract normally
[~2023-11-20 08:53] MED LIST changes: +ALLERGY Noted to ORDERED Medication SCH; -ROPIVACAINE 0.5% 5 MG/ML 30 ML VIAL ONE
[2023-11-20] MEDS ORDERED: MIDAZOLAM HCL 1 MG/ML 2ML VIAL ONE (09:26)
[2023-11-20] MEDS ORDERED: ONDANSETRON INJ 2 MG/ML 2 ML VIAL ONE (09:26)
[2023-11-20] MEDS ORDERED: fentaNYL citrate PF 100 MCG/2 ML VIAL ONE (09:26)
[2023-11-20] MEDS ORDERED: LIDOCAINE 2% 2 ML VIAL/AMP(20MG/ML) INFIL ONE (09:26)
[2023-11-20] MEDS ORDERED: ROCURONIUM BROMIDE 10 MG/ML 5 ML VIAL IV ONE (09:26)
[2023-11-20] MEDS ORDERED: DEXAMETHASONE SOD INJ 4 MG/ML VIAL ONE (09:26)
[2023-11-20] MEDS ORDERED: PROPOFOL IV EMULSION 10 MG/ML 20 ML VIAL IV ONE (09:26)
[2023-11-20] MEDS ORDERED: GLYCOPYRROLATE 0.2 MG/ML VIAL ONE (09:26)
[2023-11-20] MEDS: LR 15ML/HR IV SCH (09:46)
[2023-11-20] MEDS: CeleBREX 200 MG CAP PO SCH (09:47)
[2023-11-20] MEDS: GABAPENTIN 300 MG CAP PO SCH (09:47)
[2023-11-20] MEDS: LR 60ML/HR IV SCH (09:47)
[2023-11-20] MEDS: ACETAMINOPHEN 500 MG TAB PO SCH (09:48)
[2023-11-20] MEDS ORDERED: DROPERIDOL 5 MG/2 ML VIAL IV PRN (10:11)
[2023-11-20] MEDS ORDERED: ATROPINE SULFATE 0.1 MG/ML 10ML SYR IV PRN (10:11)
[2023-11-20] MEDS ORDERED: ePHEDrine sulfate 50 MG/ML AMP IV PRN (10:11)
--- NOTE | 2023-11-20 10:36 | History & Physical Bridge Note ---
Date of Service November 20, 2023 History & Physical Bridge Note I have examined the patient, reviewed the History & Physical and in the interval since the performance of the History & Physical I have noted the following changes of clinical significance: no changes noted
--- NOTE | 2023-11-20 10:38 | History & Physical Report ---
Date of Service November 20, 2023 Assessment & Plan (1) Neurogenic claudication due to lumbar spinal stenosis: Plan: Revision lumbar decompression L1, T11-L3 fusion History of Present Illness Chief Complaint: Back and bilateral leg pain Primary Care Provider: Cortez Juarez DO 78-year-old female presents for chronic persistent back and leg pain after failing course of nonoperative care she is here for surgical invention. Allergies Allergy/AdvReac Type Severity Reaction Status Date / Time nitrofurantoin Allergy Severe Nausea Verified 11/20/23 09:22 [From Macrobid] Penicillins Allergy Intermediate Hives Verified 11/20/23 09:22 tetracycline Allergy Intermediate Vomiting Verified 11/20/23 09:22 pseudoephedrine Allergy Mild Rash Verified 11/20/23 09:22 Sulfa (Sulfonamide Allergy Mild Hives Verified 11/20/23 09:22 Antibiotics) nabumetone [From Relafen] AdvReac Severe Chest Pain Verified 11/20/23 09:22 Home Medications Medication Instructions Recorded Confirmed Type amlodipine 5 mg tablet (Norvasc) 5 mg PO QAM 04/13/23 11/20/23 History cyclobenzaprine 10 mg tablet 10 mg PO TID PRN Pain (Scale Score 04/13/23 11/20/23 History 1-3) ezetimibe 10 mg tablet (Zetia) 10 mg PO QAM 04/13/23 11/20/23 History lisinopril 20 mg tablet 20 mg PO QAM 04/13/23 11/20/23 History omeprazole 40 mg capsule,delayed 40 mg PO QAM 04/13/23 11/20/23 History release trazodone 300 mg tablet,extended 300 mg PO HS 04/13/23 11/20/23 History release 24 hr polyethylene glycol 3350 17 gram 17 g PO DAILY PRN constipation #5 05/21/23 11/20/23 Rx oral powder packet (Miralax) ea meloxicam 15 mg tablet 15 mg PO QAM 10/26/23 11/20/23 History Vitamin D3 1 cap PO BID 11/20/23 11/20/23 History Past Med/Surg History Problem List (Updated 11/20/23 @ 10:37 by Jaswant Flores DO) Neurogenic claudication due to lumbar spinal stenosis Hypomagnesemia FH: total knee replacement Insufficiency fracture of medial femoral condyle Osteoarthritis of knee Aortic stenosis Echo 06/2022: Mild to moderate aortic stenosis (EZEQUIEL 1.32cm2, MG 15mmhg) Encounter for pre-operative examination Hypercholesteremia Hypertension Medical History (Updated 11/20/23 @ 10:37 by Jaswant Flores DO) UTI (urinary tract infection) dx 11-08-23, started on and completed dose of antibotics. no s/s at this time as per pt Anemia ongoing since 05/2023 to chart review History of blood transfusion during hysterectomy Hypercholesteremia Hypertension controlled, stable per pt Aortic stenosis Echo 06/2022: Mild to moderate aortic stenosis (EZEQUIEL 1.32cm2, MG 15mmhg), states does not follow with cardiology CSF leak Hx of spinal tap (age 30). Patient cannot remember the reason that they did the spinal tap but states that she was having issues with migraines at the time and thought this might have been related to the reason for doing it. She states there was procedure complications that resulted in CSF leaking/complicated hospital course. Basal cell carcinoma (BCC) several, removed History of COVID-19 2020- Covid + bacterial PNA, [facility] > resolved Chronic pain Osteoarthritis GERD (gastroesophageal reflux disease) controlled, stable per pt Surgical History Nausea and vomiting after administration of anesthetic agent denies needing scop patch History of esophagogastroduodenoscopy (EGD) History of colonoscopy History of basal cell carcinoma (BCC) excision x2, face and chest Hx of section x3 Hx of total hysterectomy Hx of sinus surgery x3 Hx of shoulder surgery left AC joint impingement History of decompression of both ulnar nerves History of carpal tunnel surgery of right wrist Hx of bilateral cataract extraction Hx laparoscopic cholecystectomy History of total replacement of right shoulder joint Hx of left knee surgery patellar surgery Hx of left knee surgery left total knee revision History of left knee replacement History of back surgery x3 most recent 11/2022 Social History Smoking Status: Never smoker Second Hand Exposure: No; Do You Dip or Chew Tobacco: No; Tobacco Cessation Education Requested by Patient: No Hx Alcohol Use: Yes Hx Substance Use: Yes Preferred Language: Hungarian Communication Ability: Effective Gallery Assistant Required: No Beliefs That Will Affect Care: None Current Living Situation: Significant Other Other Information That Helps Us Care for You: No Feels Safe at Home: Yes Safety Concerns: Feels Safe At This Time Assistive Devices: Glasses Physical Exam Physical Exam: Patient is alert and oriented heart regular in rhythm lungs clear Results & Data Results & Data Vital Signs (Past 12 Hours) Vital Signs Temp Pulse Resp BP Pulse Ox O2 Del Method 11/20/23 09:29 36.8 C 71 20 137/72 96 Room Air
[2023-11-20] MEDS: ceFAZolin 2,000 MG/15 ML IV PUSH IV ONE (11:01)
[2023-11-20] MEDS ORDERED: SUGAMMADEX SODIUM 200 MG/2 ML VIAL IV ONE (11:06)
[2023-11-20] MEDS: BUPIVACAINE/EPINEPHRINE 0.25% 1:200,000 30 ML VIAL ONE (11:50)
--- OUTSIDE RECORDS SUMMARY | 2023-11-20 12:18 | External Medical Summary | Summary of Care ---
Author Name Unknown Organization [facility] Address [address] [place] [address] Phone [phone] Care Team Providers Care Store Administrative Assistant Name Role Phone Cortez Juarez DO Primary Care Provider Reason for Visit * Reason Onset Date Comments Imaging Records Request 11/18/2023 Encounter Details Date Type Department Care Team (Late st Contact Info) Description 11/18/2023 Telephone Radiology Film File [address] [place] [address] Support, Imaging Radiology [address] [place] [address] Imaging Records Request Allergies Active Allergy Reactions Criticality Noted Date [...] as of this encounter (statuses as of 11/18/2023) Medications Medication Sig Dispensed Refills Start Date [...] 20 MG Oral Tablet (Lasix) 1 Tablet. 09/12/2022 Active traMADol HCl 50 MG Oral Tablet (Ultram) TAKE 1 TABLET BY MOUTH EVERY 6 HOURS NEEDED FOR MODERATE PAIN. MAX DAILY AMOUNT: 200 MG 10/23/2022 Active Celecoxib 200 MG Oral Capsule (CeleBREX) Take 1 Capsule by mouth in the morning and 1 Capsule before bedtime. 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 06/23/2018 Hyperlipidemia 05/30/2018 Status post total left knee replacement 03/04/19 Instability of prosthetic knee 01/04/2018 S/P shoulder [...] as of this encounter (statuses as of 11/18/2023) Resolved Problems Problem Noted Date Diagnosed Date [...] 04/15/2013 Overview: Diffuse Actinic Keratoses on face Dec 2011 documented as of this encounter (statuses as of 11/18/2023) Immunizations Name Administration Dates Next Due DTaP Dipth/Tet/Acell Pertussis (Infanrix), Peds 09/14/1998,08/12/1996,04/19/1994,02/14,12/09/1993 HIB PRP-T, 4 Dose, PF, IM (H iberix, ActHib) 09/14/1998,08/12/1996,04/19/1994,02/14,12/09/1993 Hepatitis B, 0-19 yrs 08/12/1996,12/09/1993,10/07 IPV - [...] in the Last Year Never true 08/04/2019 Utilities Answer Date Recorded Do you have trouble paying y our heating, water, or electric bill? (Adult - for ages 18 years and over) Not on file 07/24/2023 Is your family able to pay t he heat, water, or electric bill? (Household - for ages 0-17 years) Not on file 07/24/2023 Does your family have access to good internet? (Household - for ages 0-17 years) Not on file 07/24/2023 Social Connections Answer Date Recorded How often do you feel lonely or isolated from those around you? (Adult - for ages 18 years and over) Not on file 07/24/2023 Sex and Gender Information Value Date Recorded [...] No 03/04/2018 documented as of this encounter Miscellaneous Notes * Telephone Encounter - Joe Hutchins Epic Support - 11/18/2023 8:19 PM EDT [facility] requesting 10-22-2023 CT L SPINE images be pushed to their system. [place] Authorization to Release on file. Images pushed to [facility] external connection through [employer] Report(s) faxed to [phone]. Successful fax confirmation received. documented in this encounter Plan of Treatment Upcoming Encounters Date Type Department Care Team (Late st Contact Info) Description 11/27/2023 2:30 PM EDT Office Visit Dermatology, Evelyn Larson [address] [id number] Juhi Krause PA-C [address] [phone] Health Maintenance Due Date Last Done Comments Albumin/Creatinine Ratio 08/25/1963 Zoster Vaccines (1 of 2) 08/25/1995 DTap/Tdap Vaccines (6 - Tdap) 09/14/2008 09/14/1998, 08/12/1996, 04/19/1994, Additional history exists Depression Screening 08/03/2020 08/04/2019, 03/17/19 17 COVID-19 Vaccine ( season) 2023 Influenza Vaccine (FLU shot) (#1) 2023 11/10/2021, 11/10/2021, 11/10/2021, Additional history exists GFR 12/08/2023 12/07/2022, 03/2022, 12/06/2022, Additional history exists DXA Scan 07/29/2025 07/29/2018, 07/07, 07/29/2018, Additional history exists Hepatitis B Vaccine Aged Out 08/12/1996, 12/09/1993, 10/25/1993 No longer eligible based on patient's age to complete this topic MENINGOCOCCAL (MENACTRA/MENVEO) Aged Out 05/14/2008, 05/14/2008 No longer eligibl e based on patient's age to complete this topic Pneumococcal Vaccine: 65+ Years Completed 08/04/2019, 11/29/2017 HPV (Gardasil) Vaccine Aged Out No lo nger eligible based on patient's age to complete this topic documented as of this encounter Medical Devices Implanted Type Area Venue Coordinator Device Identifier Shelf Expiration Date Model / Serial / Lot Nice Loop White/Green Braided Ptfe Impregnated Polyester Fiber Nonabsorable Surgicle Suture Implanted:Qty: 1 on 08/21/2017 by Chaim Ambrose DO at OR [facility] Right: Shoulder 04/27/2021 [id number] / / [id number] Wite Braided Ptfe Impregnated Polyester Fiber Nonabsorable Surgical Suture Implanted:Qty: 1 on 08/21/2017 by Chaim Ambrose DO at OR [facility] Right: Shoulder 03/10/2021 [id number] / / [id number] Green Braided Ptfe Imed Polyester Fiber Nonabsorbable Surgical Suture Implanted:Qty: 1 on 08/21/2017 by Chaim Ambrose DO at OR [facility] Right: Shoulder 12/01/2020 [id number] / / [id number] Cement Bone R 1112-140-01 - [id number] Implanted:Qty: 1 on 08/21/2017 by Chaim Ambrose DO at OR [facility] Right: Shoulder [employer] 03/07/2022-1112-1 40- / / Aequalis Perform Cortiloc Pegged Glenoid-Uhmwpe +Cocr Implanted:Qty: 1 on 08/21/2017 by Chaim Ambrose DO at OR [facility] Right: Shoulder [employer] 04/18/2022 [id number] / [id number] / Aequalis Humeral Head-Cocr 0= 46mm H= 17mm Ecc =Low (1.5) Mat=Cocr Implanted:Qty: 1 on 08/21/2017 by Chaim Ambrose DO at OR [facility] Right: Shoulder [employer] 12/28/2021 [id number] / [id number] / Standard Ptc Humeral Stem [id number] + Ti Size=3a, Tracf=907.5 Degree L=74mm Coat=Ptc Implanted:Qty: 1 on 08/21/2017 by Chaim Ambrose DO at OR [facility] Right: Shoulder [employer] 01/25/2021 [id number] / [id number] / [place] Suture Biocomposite - [id number] Implanted:Qty: 2 on 08/21/2017 by Chaim Ambrose DO at OR [facility] Right: Shoulder [employer] 06/05/2019 [id number] C / / [id number] Cement Bone G 1113-140-01 - [id number] Implanted:Qty: 1 on 03/04/2018 by Joe Quintana MD [place] [facility] Left: Knee [employer] 09/05/2019-1113-1 40- / / [id number] Gmk Wedge Tibial Hinge 5mm S3 - [id number] Implanted:Qty: 1 on 03/04/2018 by Joe Quintana MD at [place] [facility] Left: Knee [employer] 12/11/2022 02.09.TA3 05 / / [id number] Gmk Wedge Tibial Hinge 5mm S3 - [id number] Implanted:Qty: 1 on 03/04/2018 by Joe Quintana MD at [place] [facility] Left: Knee [employer] 12/11/2022 02.09.TA3 05 / / [id number] Femoral Component- [employer]a Cemented Revision Left Ps Implanted:Qty: 1 on 03/04/2018 by Joe Quintana MD at [place] [facility] Left: Knee 05/24/2022 02.07.240 3L / / [id number] Description:medacta Femoral Wedge Posterior Size 3, Height 5, Revision Implanted:Qty: 1 on 03/04/2018 by Joe Quintana MD at [place] [facility] Left: Knee 2021 02.05.03P W / / [id number] Description:medacta Extension Stem Cemented- Length 65, 13, Revision Implanted:Qty: 1 on 03/04/2018 by Joe Quintana MD at OR [facility] Left: Knee 01/02/2023 02.07.FSC [id number] / / [id number] Description:medacta Extension Stem Cemented- 11, Length 65, Revision Implanted:Qty: 1 on 03/04/2018 by Joe Quintana MD at OR [facility] Left: Knee 05/07/2021 02.07.FSC [id number] / / [id number] Description:medacta Fixed Tibial Tray- Size 3, Left, Cemented Revision Implanted:Qty: 1 on 03/04/2018 by Joe Quintana MD at OR [facility] Left: Knee 10/15/2022 02.07.068 3L / / [id number] Description:medacta Tibial Insert Fixed- Size 3, Height 17, Semiconstrained Implanted:Qty: 1 on 03/04/2018 by Joe Quintana MD at OR [facility] Left: Knee 04/25/2022 02.07.031 7SCF / / [id number] Description:medacta Cement Bone G 1113-140-01 - [id number] Implanted:Qty: 4 on 03/04/2018 by Joe Quintana MD at [place] [facility] Left: Knee [employer] 06/04/2020 00-1113-1 40-01 / / [id number] documented as of this encounter Advance Directives * Full Code (Latest Code Status on File) Date Activated Date Inactivated Comments 03/04/2018 10:02 AM 03/06/2018 4:59 PM This order reflects the patients wishes and were consensually agreed upon. * Full Code Date Activated Date Inactivated Comments 03/04/2018 10:01 AM 03/04/2018 10:02 AM This order reflects the patients wishes and were consensually agreed upon. Question Answer Comments Discussion of Advance Directives occurred with: Not Discussed Does the patient have a Living Will? No Does the patient have Health Care Power of Attor ev? No * Full Code Date Activated Date Inactivated Comments 08/21/2017 4:14 PM 08/23/2017 4:52 PM . Question Answer Comments Discussion of Advance Directives occurred with: Not Discussed * Full Code Date Activated Date Inactivated Comments 07/10/2017 1:18 PM 07/10/2017 7:17 PM This order ref lects the patients wishes and were consensually agreed upon. Care Teams Store Administrative Assistant Relationship Specialty Start Date End Date Cortez Juarez DO [address] [place] [address] [place] [id number] PCP - General Family Medicine 08/05/16 documented as of this encounter
--- OUTSIDE RECORDS SUMMARY | 2023-11-20 12:18 | External Medical Summary ---
Author Name Unknown Address Unknown Organization [facility] [employer] [facility] Ur[facility] [employer] [facility] [address] [place] [address] Laboratory Report Ordering Provider Test Date Status Ann Toro 11/16/2023 13:15:00 Final Observation Date Value Abnormality Reference (Units ) Status Color of Urine by Auto 11/16/2023 17:04:59 Yellow^Yellow Final Appearance of Urine 11/16/2023 17:04:59 Clear^Clear Final Specific gravity of Urine by Automated test strip 11/16/2023 17:04:59 1.025 1.003-1.030 Final pH of Urine by Automated test strip 11/16/2023 17:04:59 6.0 5.0-8.0 Final Protein [Presence] in Urine by Automated test strip 11/16/2023 17:04:59 Negative^Negat kelsea Negative (mg/dL) Final Glucose [Presence] in Urine by Automated test strip 11/16/2023 17:04:59 Negative^Negat kelsea Negative (mg/dL) Final Ketones [Presence] in Urine by Automated test strip 11/16/2023 17:04:59 Negative^Negat kelsea Negative (mg/dL) Final Bilirubin.total [Presence] in Urine by Automated test strip 11/16/2023 17:04:59 Negative^Negat kelsea Negative Final Erythrocytes [Presence] in Urine by Automated 11/16/2023 17:04:59 Negative^Negat kelsea Negative Final Urobilinogen [Presence] in Urine by Automated test strip 11/16/2023 17:04:59 2^2 Abnormal Normal (mg/dL) Final Nitrite [Presence] in Urine by Automated test strip 11/16/2023 17:04:59 Negative^Negat kelsea Negative Final Leukocyte esterase [Presence] in Urine by Automated test strip 11/16/2023 17:04:59 Negative^Negat kelsea Negative Final Ascorbate [Presence] in Urine 11/16/2023 17:04:59 Negative^Negat kelsea Negative Final UA Micro Comp? 11/16/2023 17:04:59 Done^Done Final Erythrocytes [#/area] in Urine sediment by Automated count 11/16/2023 17:04:59 0-2^0-2 (/HPF) Final Leukocytes [#/area] in Urine sediment by Microscopy high power field 11/16/2023 17:04:59 0-2^0-2 None (/HPF) Final Performing Location [facility] [employer] [facility]inal[facility] [address] [place] [address]
--- OUTSIDE RECORDS SUMMARY | 2023-11-20 12:18 | External Medical Summary | Continuity of Care Document ---
Author Name Unknown Organization [place] [address] [address] [facility] [address] [place] [address] [place] [id number] Care Team Providers Care Pbx Teacher Name Role Phone Cortez Juarez Primary Care Physician [phone] Encounter [facility] [id number] Date(s): 11/16/23 - 11/16/[address] 200 [facility] [address] [place] [id number] Encounter Diagnosis UTI symptoms(Discharge Diagnosis) - 11/16/23 Discharge Disposition: Home or Self Care Attending Physician: DO Juarez Daniel T Allergies, Adverse Reactions, Alerts Substance Criticality Severity Reaction Reaction Severity Status tetracycline vomiting Active nitrofurantoin Unable to assess criticality Moderate Drug-induced nausea and vomiting Active nabumetone Active pseudoephedrine crawling under skin Active diclofenac Propensity to a dverse reaction Active sulfa drugs rash hives Active Macrobid severe nausea vomiting Active tetracyclines Unable to assess criticality Mild Gastrointestinal symptom Active Relafen Severe nausea a nd vomiting that has lasted a long time.... Chest pain Active PCN (penicillin) rash hives Active Immunizations Given and Recorded Vaccine Date Status [...] B pediatric vaccine 10/25/93 Recorded 1Result Comment: Rn Telephone Triage: [employer] 2Result Comment: Rn Telephone Triage: [employer] 3Result Comment: Unit: Unknown Rn Telephone Triage: [employer] [place] 4Result Comment: Unit: Unknown Rn Telephone Triage: [employer] Medications amLODIPine 5 mg oral tablet Start: 03/26/23 8:55:00 AM EST, 1 tab, PO, Daily, Disp# 90 tab, Refills: 3, Pharmacy: [facility] Start Date: 03/26/23 Status: Ordered cetirizine 10 mg oral tablet Start: 01/17/22 4:20:00 PM EST, 90 each, take 1 tablet by mouth every morning Start Date: 01/17/22 Status: Ordered Cipro 500 mg oral tablet Start: 11/09/23 8:33:00 AM EDT, 1 tab, PO, q12h, Disp# 14 tab, Refills: 0, Pharmacy: [facility] Start Date: 11/09/23 Status: Ordered ezetimibe 10 mg oral tablet Start: 10/15/23 10:27:00 AM EDT, 1 tab, PO, qAM, Disp# 90 tab, Refills: 2, Pharmacy: [place] [id number] Start Date: 10/15/23 Status: Ordered furosemide 20 mg oral tablet Start: 10/24/22 8:18:00 AM EDT, 1 tab, PO, Daily, Disp# 90 tab, Refills: 1, Pharmacy: [place] [id number] Start Date: 10/24/22 Status: Ordered lisinopril 20 mg oral tablet Start: 04/16/23 8:11:00 AM EDT, 1 tab, PO, qAM, Disp# 90 tab, Refills: 1, Pharmacy: [place] [id number] Start Date: 04/16/23 Status: Ordered meloxicam 15 mg oral tablet Start: 06/27/23 7:12:00 AM EDT, 1 tab, PO, Daily, Disp# 90 tab, Refills: 3, Pharmacy: [place] [id number] Start Date: 06/27/23 Status: Ordered omeprazole 40 mg oral delayed release capsule Start: 09/24/23 7:58:00 AM EDT, See Instructions, Disp# 90 cap, Refills: 0, TAKE 1 CAPSULE BY MOUTH ONCE DAILY 1 HOUR BEFORE THE FIRST MEAL OF THE DAY, Pharmacy: [place] [address] Start Date: 09/24/23 Status: Ordered Tobradex 0.3%-0.1% ophthalmic suspension Start: 08/30/23 10:20:00 AM EDT, 2 drop, left eye, qid, Disp# 5 mL, Refills: 0, Pharmacy: [place] [address] Start Date: 08/30/23 Status: Ordered traMADol 50 mg oral tablet Start: 11/08/23 9:57:00 AM EDT, 1 tab, PO, q6h, Disp# 120 tab, Refills: 1, PRN: as needed for pain, Pharmacy: [place] [id number] Start Date: 11/08/23 Status: Ordered traZODone 300 mg oral tablet Start: 10/10/23 7:27:00 AM EDT, 1 tab, PO, qhs, Disp# 90 tab, Refills: 1, Pharmacy: [place] [id number] Start Date: 10/10/23 Status: Ordered triamcinolone 0.1% topical ointment Start: 05/19/19 1:03:00 PM EDT, 1 appl, topical, qhs, Disp# 15 g, Refills: 0, Nightly as needed, Pharm[facility]: [facility] Start Date: 05/19/19 Status: Ordered Ventolin HFA Start: 01/17/22 5:08:00 PM EST, 2 Unknown, Inhalation, 3 Refill(s), Inhale by mouth 2 Puffs every 4hours as needed for Wheezing. Start Date: 01/17/22 Status: Ordered Problem List Condition Confirmation Course Effective Dates Status H ealth Status Informant Anxiety Confirmed Active Aortic valve stenosis Confirmed Active Carotid bruit Confirmed Active Chronic constipation Confirmed Active GERD without esophagitis Confirmed Active Hiatal hernia Confirmed Active Hx of shoulder replacement Confirmed Active Hyperlipidemia Confirmed Active Hypertension Confirmed Active Insomnia Confirmed Active Lumbar radiculopathy Confirmed Active MR (mitral regurgitation) Confirmed Active Osteoarthritis of right knee Confirmed Active Prediabetes Confirmed Active Rosacea Confirmed Active Lumbar stenosis with neurogenic claudication Confirmed Active Subclinical hyperthyroidism Confirmed Active Diagnosis Diagnosis Type Effective Dates Health Status Cl inical Service Informant UTI symptoms Discharge Diagnosis 11/16/23 Non-Specified Procedures Procedure Date Related Diagnosis Body Site Status back surgery 11/2018 Completed left knee replacement revision 03/04/18 Completed Total knee replacement 1 12/2015 Completed Total knee replacement 2 01/2015 Completed Surgery 3 10/2011 Completed Spinal fusion 4 01/2011 Completed Surgery 5 05/2010 Completed Carpal tunnel release 6 2002 C ompleted Total hysterectomy 1985 Comple sol section 1976 Complete d section 1970 Complete d section 1968 Complete d Excision of ganglion cyst 7 Completed Excision of lipoma 8 Comp leted History of nasal sinus surgery 9 Completed Surgery 10 Completed Surgery 11 Completed Total right shoulder replacement 12 Completed 1Left knee 2left knee 3Removal of spinal cord stimulator. 4Lumber spine. 5Insertion of spinal cord stimulator 6Right 7right wrist 8left lower back 84968, 1989, 1992 10impingement of left shoulder 11bilateral ulnar nerve surgery. 2002 and 2005 [id number] Results Laboratory List Name Date Urinalysis with Reflex to Culture. 11/15 Urine Chemstick POC Outpt. (Urinalysis C hemstick POC Outpt.) 11/16/23 Most recent to oldest [Reference Range]: 1 Glucose Urine Dipstick Ref Range [negati ve] (11/16/23 1:08 PM) Bilirubin Urine Dipstick Ref Range [nega tive] (11/16/23 1:08 PM) Specific [place] Urine Ref Range [No Nor mal Defined] (11/16/23 1:08 PM) Protein Urine Dipstick Ref Range [negati ve] (11/16/23 1:08 PM) pH Urine Dipstick Ref Range [4.5 - 8.0] (11/16/23 1:08 PM) Ketones Urine Dipstick Ref Range [negati ve] (11/16/23 1:08 PM) Blood Urine Dipstick Ref Range [negative ] (11/16/23 1:08 PM) Urobilinogen Urine Dipstick Ref Range [0 .2 - 1.0 mg/dL] (11/16/23 1:08 PM) Nitrites Urine Dipstick Ref Range [negat kelsea] (11/16/23 1:08 PM) Leukocytes Urine Dipstick Ref Range [neg ative] (11/16/23 1:08 PM) Urine Chem Lot# [id number] (11/16/23 1:08 PM) Urine Chem Expiration Date (11/16/23 1:08 PM) U Leuk Est Negative (11/16/23 1:08 PM) U Nitrite Negative (11/16/23 1:08 PM) U Urobilinogen 1 mg/dl (11/16/23 1:08 PM) U Protein Negative (11/16/23 1:08 PM) U pH 6.5 (11/16/23 1:08 PM) U Blood Trace (11/16/23 1:08 PM) U Spec Grav 1.025 1 (11/16/23 1:08 PM) U Ketones Negative (11/16/23 1:08 PM) U Bili Negative (11/16/23 1:08 PM) U Gluc Negative (11/16/23 1:08 PM) U Appear Clear (11/16/23 1:08 PM) Urine color urine dipstick Yellow (11/16/23 1:08 PM) Ascorbic Acid (u) [Negative] Negative (11/16/23 1:15 PM) Appear (u) Clear (11/16/23 1:15 PM) Bili (u) [Negative] Negative (11/16/23 1:15 PM) Ketones [Negative mg/dL] Negative mg/dL (11/16/23 1:15 PM) Leuk Est [Negative] Negative (11/16/23 1:15 PM) Nitrite (u) [Negative] Negative (11/16/23 1:15 PM) Color (u) Yellow (11/16/23 1:15 PM) Glu (u) [Negative mg/dL] Negative mg/dL (11/16/23 1:15 PM) Hgb (u) [Negative] Negative (11/16/23 1:15 PM) pH (u) [5.0-8.0] 6.0 (11/16/23 1:15 PM) Prot (u) [Negative mg/dL] Negative mg/dL (11/16/23 1:15 PM) RBC (u) 0-2 /HPF *NA* (11/16/23 1:15 PM) Urobili [Normal mg/dL] 2 mg/dL *Abnormal* (11/16/23 1:15 PM) SG [1.003-1.030] 1.025 (11/16/23 1:15 PM) WBC (u) [None /HPF] 0-2 /HPF (11/16/23 1:15 PM) 1Result Comment: Performed at: [facility], [address] [place] [address], [address], [place] [address] Social History Social History Type Response Smoking Status Never smoked cigaret karol Sex Female Sex Representation Female (finding) Patient Care team information Care Team Related Persons Name: CORTEZ PEDRO Name: CORTEZ PEDRO
--- OUTSIDE RECORDS SUMMARY | 2023-11-20 12:18 | External Medical Summary ---
Author Name Unknown Address Unknown Organization [facility] [address] [place] Laboratory Report Ordering Provider Test Date Status Ann Toro 11/16/2023 12:48:25 Final Observation Date Value Abnormality Reference (Units ) Status Immature reticulocytes/Reticulo cytes.total in Blood 11/16/2023 22:06:44 11.6 Above high normal 0.1-11.0 (%) Final Hemoglobin [Entitic mass] in Reticulocytes by Automated count 11/16/2023 22:06:44 27.1 24.1-35.8 (pg) Final Reticulocytes [#/volume] in Blood by Automated count 11/16/2023 22:06:44 0.0570 0.0100-0.0900 (M/uL) Final Reticulocytes.mid light scatter/Reticulocytes. total in Blood by Automated count 11/16/2023 22:06:44 1.44 0.40-1.90 (%) Final Performing Location [facility] [address] [place]
--- OUTSIDE RECORDS SUMMARY | 2023-11-20 12:18 | External Medical Summary | Continuity of Care Document ---
Author Name Unknown Organization [place] [address] [place] [id number] Care Team Providers Care Punch Press Operator Helper Name Role Phone Cortez Juarez Primary Care Physician [phone] [id number] Date(s): 11/16/23 - 11/16/23 [place] [address] [place] [phone] Discharge Disposition: Home or Self Care Attending [...] B pediatric vaccine 10/25/93 Recorded 1Result Comment: House Painter: [employer] 2Result Comment: House Painter: [employer] 3Result Comment: Unit: Unknown House Painter: [employer] [place] 4Result Comment: Unit: Unknown House Painter: [employer] Medications amLODIPine 5 mg oral tablet Start: 03/26/23 8:55:00 AM EST, 1 tab, PO, Daily, Disp# 90 tab, Refills: 3, Pharmacy: [facility] 160 Start Date: 03/26/23 Status: Ordered cetirizine 10 mg oral tablet Start: 01/17/22 4:20:00 PM EST, 90 each, take 1 tablet by mouth every morning Start Date: 01/17/22 Status: Ordered Cipro 500 mg oral tablet Start: 11/09/23 8:33:00 AM EDT, 1 tab, PO, q12h, Disp# 14 tab, Refills: 0, Pharmacy: [facility] 160 Start Date: 11/09/23 Status: Ordered ezetimibe 10 mg oral tablet Start: 10/15/23 10:27:00 AM EDT, 1 tab, PO, qAM, Disp# 90 tab, Refills: 2, Pharmacy: [place] [id number] Start Date: 10/15/23 Status: Ordered furosemide 20 mg oral tablet Start: 10/24/22 8:18:00 AM EDT, 1 tab, PO, Daily, Disp# 90 tab, Refills: 1, Pharmacy: [place] [address] Start Date: 10/24/22 Status: Ordered lisinopril 20 mg oral tablet Start: 04/16/23 8:11:00 AM EDT, 1 tab, PO, qAM, Disp# 90 tab, Refills: 1, Pharmacy: [place] [id number] Start Date: 04/16/23 Status: Ordered meloxicam 15 mg oral tablet Start: 06/27/23 7:12:00 AM EDT, 1 tab, PO, Daily, Disp# 90 tab, Refills: 3, Pharmacy: [place] [address] Start Date: 06/27/23 Status: Ordered omeprazole 40 mg oral delayed release capsule Start: 09/24/23 7:58:00 AM EDT, See Instructions, Disp# 90 cap, Refills: 0, TAKE 1 CAPSULE BY MOUTH ONCE DAILY 1 HOUR BEFORE THE FIRST MEAL OF THE DAY, Pharmacy: [place] [address] Start Date: 09/24/23 Status: Ordered Tobradex 0.3%-0.1% ophthalmic suspension Start: 08/30/23 10:20:00 AM EDT, 2 drop, left eye, qid, Disp# 5 mL, Refills: 0, Pharmacy: [place] [address] Start Date: 08/30/23 Status: Ordered traMADol 50 mg oral tablet Start: 11/08/23 9:57:00 AM EDT, 1 tab, PO, q6h, Disp# 120 tab, Refills: 1, PRN: as needed for pain, Pharmacy: [place] [address] Start Date: 11/08/23 Status: Ordered traZODone 300 mg oral tablet Start: 10/10/23 7:27:00 AM EDT, 1 tab, PO, qhs, Disp# 90 tab, Refills: 1, Pharmacy: [place] [id number] Start Date: 10/10/23 Status: Ordered triamcinolone 0.1% topical ointment Start: 05/19/19 1:03:00 PM EDT, 1 appl, topical, qhs, Disp# 15 g, Refills: 0, Nightly as needed, [facility]acy: [facility] Start Date: 05/19/19 Status: Ordered Ventolin [...] Diagnosis Diagnosis Type Effective Dates Health Status Clini michael Service Informant Pancytopenia 11/16/23 Non-Specified Pancytopenia 11/16/23 Non-Specified Pancytopenia 11/16/23 Non-Specified Pancytopenia 11/16/23 Non-Specified Procedures Procedure Date Related Diagnosis [...] stimulator 6Right 7right wrist 8left lower back 12227, 1989, 1992 10impingement of left shoulder 11bilateral ulnar nerve surgery. 2002 and 2005 [id number] Results Laboratory List Name Date CBC w/ Diff. 11/16/23 Iron Level and TIBC. 11/16/23 Retic Count w/ IRF. 11/16/23 Vitamin B12 and Folate Levels. 11/16/23 Automated Differential. 11/16/23 Most recent to oldest [Reference Range]: 1 Imm. Retics [0.1-11.0 %] 11.6 % *HI* (11/16/23 12:48 PM) RDW-CV [11.5-14.2 %] 14.0 % (11/16/23 12:48 PM) RDW-SD 45 *NA* (11/16/23 12:48 PM) Nuc RBC Relative Count 0 /100 WBCs *NA* (11/16/23 12:48 PM) Nuc RBC Abs Count 0.00 K/uL *NA* (11/16/23 12:48 PM) Retic Hgb [24.1-35.8 pg] 27.1 pg (11/16/23 12:48 PM) Vitamin B12 Level [211-946 pg/mL] 497 pg /mL (11/16/23 12:48 PM) MPV [9.0-12.2 fL] 12.7 fL *HI* (11/16/23 12:48 PM) Immature Gran% 0.0 % *NA* (11/16/23 12:48 PM) Neut% 56.3 % *NA* (11/16/23 12:48 PM) Lymph% 24.9 % *NA* (11/16/23 12:48 PM) Ward% 16.4 % *NA* (11/16/23 12:48 PM) Baso% 0.5 % *NA* (11/16/23 12:48 PM) Eos% 1.9 % *NA* (11/16/23 12:48 PM) Immat Gran, Abs [0.00-0.40 K/uL] 0.00 K/ uL (11/16/23 12:48 PM) Neut, Abs [2.00-7.70 K/uL] 1.20 K/uL *LOW* (11/16/23 12:48 PM) Lymph, Abs [1.00-3.40 K/uL] 0.53 K/uL *LOW* (11/16/23 12:48 PM) Ward, Abs [0.00-1.00 K/uL] 0.35 K/uL (11/16/23 12:48 PM) Baso, Abs [0.00-0.10 K/uL] 0.01 K/uL (11/16/23 12:48 PM) Eos, Abs [0.00-0.50 K/uL] 0.04 K/uL (11/16/23 12:48 PM) Iron [33-151 mcg/dL] 80 mcg/dL (11/16/23 1248 PM) Folate [>=4.5 ng/mL] 8.1 ng/mL (11/16/23 1248 PM) Hct [35.0-44.0 %] 35.2 % (11/16/2348 PM) Hgb [11.7-15.0 g/dL] 10.8 g/dL *LOW* (11/16/2348 PM) MCH [28.0-33.0 pg] 27.3 pg *LOW* (11/16/23 PM) MCHC [32.0-36.0 g/dL] 30.7 g/dL *LOW* (11/16/2348 PM) MCV [81.0-96.0 fL] 89.1 fL (11/16/2348 PM) Plts [150-350 K/uL] 160 K/uL (11/16/23:48 PM) RBC [3.90-5.00 M/uL] 3.95 M/uL (11/16/23 1248 PM) Retics (abs) [0.0100-0.0900 M/uL] 0.0570 M/uL (11/16/23 12:48 PM) Retic (%) [0.40-1.90 %] 1.44 % (11/16/2348 PM) Fe Sat [15-55 %] 22 % (11/16/23 12:48 PM) Total IBC [236-425 ug/dL] 361 ug/dL (11/16/23 12:48 PM) Transferrin [200.0-360.0 mg/dL] 306.0 mg /dL (11/16/23 12:48 PM) WBC [4.00-10.40 K/uL] 2.13 K/uL *LOW* (11/16/23 12:48 PM) Social History Social History Type Response Smoking Status Never smoked cigaret karol Sex Female Sex Representation Female (finding) Patient Care team information Care Team Related Persons Name: CORTEZ PEDRO Name: CORTEZ PEDRO
--- OUTSIDE RECORDS SUMMARY | 2023-11-20 12:19 | External Medical Summary ---
Author Name Unknown Address Unknown Organization [facility] [employer] [facility] [employer] [facility] [address] [place] [address] Laboratory Report Ordering Provider Test Date Status Ann Toro 11/16/2023 12:48:25 Final Observation Date Value Abnormality Reference (Units ) Status Iron [Mass/volume] in Serum or Plasma 11/16/2023 17:49:43 80 33-151 (mcg/dL) Final Transferrin [Mass/volume] in Serum or Plasma 11/16/2023 17:49:43 306.0 200.0-360.0 (mg/dL) Final Iron binding capacity.unsaturated [Mass/volume] in Serum or Plasma 11/16/2023 17:49:43 361 236-425 (ug/dL) Final Iron saturation [Mass Fraction] in Serum or Plasma 11/16/2023 17:49:43 22 15-55 (%) Final Performing Location [facility] [employer] Canteen Manager ry [address] [place] [address] [place] [address]
--- OUTSIDE RECORDS SUMMARY | 2023-11-20 12:19 | External Medical Summary ---
Author Name Unknown Address Unknown Organization [facility] [employer] [facility] [employer] [facility] [address] [place] [address] Laboratory Report Ordering Provider Test Date Status Ann Toro 11/16/2023 12:48:25 Final Observation Date Value Abnormality Reference (Units ) Status Cobalamin (Vitamin B12) [Mass/volume] in Serum or Plasma 11/16/2023 17:51:00 497 211-946 (pg/mL) Final Folate [Mass/volume] in Serum or Plasma 11/16/2023 17:51:00 8.1 >=4.5 (ng/mL) Final Performing Location [facility] [employer] Mud Mixer Helper ry [address] [place] [address] [place] [address]
--- OUTSIDE RECORDS SUMMARY | 2023-11-20 12:19 | External Medical Summary | Continuity of Care Document ---
Author Name Unknown Organization [place] [address] [address] [facility] [address] [place] [address] [place] [id number] Care Team Providers Care Imagery Intelligence Name Role Phone Cortez Juarez Primary Care Physician [phone] Encounter [facility] [id number] Date(s): 11/08/23 - 11/08/[address] 200 [facility] [address] [place] [id number] Encounter Diagnosis Preoperative examination(Discharge Diagnosis) - 11/08/23 Fusion of spine of lumbar region(Discharge Diagnosis) - 11/08/23 Lumbar stenosis with neurogenic claudication(Discharge Diagnosis) - 11/08/23 Lumbar radiculopathy(Discharge Diagnosis) - 11/08/23 Abnormal ECG(Discharge Diagnosis) - 11/09/23 Aortic valve stenosis, moderate(Discharge Diagnosis) - 11/09/23 Pancytopenia(Discharge Diagnosis) - 11/09/23 Prediabetes(Discharge Diagnosis) - 11/09/23 Hyperlipidemia(Discharge Diagnosis) - 11/09/23 Hypertension(Discharge Diagnosis) - 11/09/23 Abnormal urine findings(Discharge Diagnosis) - 11/09/23 Discharge Disposition: Home or Self Care Attending [...] Visit Note Author:DO Juarez Danie l T Date:11/09/23 1.Preoperative examination 2.Fusion of spine of lumbar region 3.Lumbar stenosis with neurogenic claudication 4.Lumbar radiculopathy 5.Abnormal ECG Preop ECG from 11/07/23 reviewed and compared to ECG 05/17/23 .NEWST-T changes in lateral leads- Lateral infarct ., age undetermined 6.Aortic valve stenosis, moderate Echocardiogram 06/22/23 - LVEF 60-64 % Moderate Discussed with pt about with new ECG findings and hx ofAS, Have cardiology do evaluation for preop clearance . Pt has seen Dr King past and request to see him again Refer tocardiology to assist in clearance and see if pt needs further cardiac testing -stress echo before surgery 7.Hypertension Stable CMP unremarkable Continue amlodipine 5 mg daily Continue lisinopril 20 mg daily 8.Prediabetes Stable Glucose in acceptable range for surgery 9.Hyperlipidemia Continue ezetimibe 10 mg daily 10.Pancytopenia WBC 2.36, Hgb 10.6, [id number] Repeat CBC with diff, add B12 and folate , along with iron studies Will consider hematology referral pending repeat labs 11.Abnormal urine findings Urine test showed + Leuk esterase , +RBC's Treat Cipro 500 mg bid x 1 week , repeat urine in 7-10 days Pt is discomfort with pain 8-9/10 at times Tramadol 50 mg 1 q 6 hr prnpain >7 At this time pt is NOT medically cleared Will await cardiology evaluation and repeat labs as above Immunizations Given and Recorded Vaccine Date Status [...] B pediatric vaccine 10/25/93 Recorded 1Result Comment: Actimize Architect: Sanofi Pasteur 2Result Comment: Actimize Architect: MostLikely 3Result Comment: Unit: Unknown Actimize Architect: Pens[employer] [place] 4Result Comment: Unit: Unknown Actimize Architect: Merck and [employer] Medications amLODIPine 5 mg oral tablet Start: 03/26/23 8:55:00 AM EST, 1 tab, PO, Daily, Disp# 90 tab, Refills: 3, Pharmacy: [facility] Start Date: 03/26/23 Status: Ordered cetirizine 10 mg oral tablet Start: 01/17/22 4:20:00 PM EST, 90 each, take 1 tablet by mouth every morning Start Date: 01/17/22 Status: Ordered Cipro 500 mg oral tablet Start: 11/09/23 8:33:00 AM EDT, 1 tab, PO, q12h, Disp# 14 tab, Refills: 0, Pharmacy: [facility] Start Date: 11/09/23 Status: Ordered ezetimibe 10 mg oral tablet Start: 10/15/23 10:27:00 AM EDT, 1 tab, PO, qAM, Disp# 90 tab, Refills: 2, Pharmacy: [place] [id number] Start Date: 10/15/23 Status: Ordered furosemide 20 mg oral tablet Start: 10/24/22 8:18:00 AM EDT, 1 tab, PO, Daily, Disp# 90 tab, Refills: 1, Pharmacy: [place] [id number] Start Date: 10/24/22 Status: Ordered lisinopril 20 mg oral tablet Start: 04/16/23 8:11:00 AM EDT, 1 tab, PO, qAM, Disp# 90 tab, Refills: 1, Pharmacy: [place] [id number] Start Date: 04/16/23 Status: Ordered meloxicam 15 mg oral tablet Start: 06/27/23 7:12:00 AM EDT, 1 tab, PO, Daily, Disp# 90 tab, Refills: 3, Pharmacy: [place] [id number] Start Date: 06/27/23 Status: Ordered omeprazole 40 mg oral delayed release capsule Start: 09/24/23 7:58:00 AM EDT, See Instructions, Disp# 90 cap, Refills: 0, TAKE 1 CAPSULE BY MOUTH ONCE DAILY 1 HOUR BEFORE THE FIRST MEAL OF THE DAY, Pharmacy: [place] [id number] Start Date: 09/24/23 Status: Ordered Tobradex 0.3%-0.1% ophthalmic suspension Start: 08/30/23 10:20:00 AM EDT, 2 drop, left eye, qid, Disp# 5 mL, Refills: 0, Pharmacy: [place] [id number] Start Date: 08/30/23 Status: Ordered traMADol 50 mg oral tablet Start: 11/08/23 9:57:00 AM EDT, 1 tab, PO, q6h, Disp# 120 tab, Refills: 1, PRN: as needed for pain, Pharmacy: [place] [id number] Start Date: 11/08/23 Status: Ordered traZODone 300 mg oral tablet Start: 10/10/23 7:27:00 AM EDT, 1 tab, PO, qhs, Disp# 90 tab, Refills: 1, Pharmacy: [place] [id number] Start Date: 10/10/23 Status: Ordered triamcinolone 0.1% topical ointment Start: 05/19/19 1:03:00 PM EDT, 1 appl, topical, qhs, Disp# 15 g, Refills: 0, Nightly as needed, Pharmacy: [facility] Start Date: 05/19/19 Status: Ordered Ventolin HFA [...] Effective Dates Health Status Clinical Service Informant Preoperative examination Discharge Diagnosis 11/08/23 Non-Specified Fusion of spine of lumbar region Discharge Diagnosis 11/08/23 Non-Specified Lumbar stenosis with neurogenic claudication Discharge Diagnosis 11/08/23 Non-Specified Lumbar radiculopathy Discharge Diagnosis 11/08/23 Non-Specified Pancytopenia Discharge Diagnosis 11/09/23 Non-Specified Abnormal ECG Discharge Diagnosis 11/09/23 Non-Specified Hypertension Discharge Diagnosis 11/09/23 Non-Specified Hyperlipidemia Discharge Diagnosis 11/09/23 Non-Specified Prediabetes Discharge Diagnosis 11/09/23 Non-Specified Abnormal urine findings Discharge Diagnosis 11/09/23 Non-Specified Aortic valve stenosis, moderate Discharge Diagnosis 11/09/23 Non-Specified Procedures Procedure Date Related Diagnosis Body [...] stimulator 6Right 7right wrist 8left lower back [id number], 1989, 1992 10impingement of left shoulder 11bilateral ulnar nerve surgery. 2002 and 2005 [id number] Vital Signs Most recent to oldest [Reference Range]: 1 Height 157.5 cm (11/08/23 8:14 AM) Patient Weight 65.0 kg (11/08/23 8:14 AM) Body Mass Index 26.2 kg/m2 (11/08/23 8:14 AM) Temperature [36.5-37.9 DegC] 36.6 DegC (11/08/23 8:14 AM) Respiratory Rate 72 br/min (11/08/23 8:14 AM) Blood Pressure 142/78mmHg (11/08/23 8:14 AM) Cuff Pulse Pressure 64 mmHg (11/08/23 8:14 AM) BP Location # 1 Left Arm (11/08/23 8:14 AM) Social History Social History Type Response Smoking Status Never smoked cigaret karol Sex Female Sex Representation Female (finding) [facility] Outpt Note * DO Juarez Daniel T: PERFORM Event Display: [facility] Outpt Note Authored Date: [id number] Chief Complaint Pt here for pre-op clearance for lumbar decompression revision and fusion. Pt had EKG and blood work done at hospital yesterday. History of Present Illness 78 yo female presenting for preoperative physical exam . Pt had ECG and preop labs done at [facility] 11/07/23 Pt with Lumbar stenosis with neurogenic claudication and scheduled for REVISION LUMBAR DECOMPRESSION T11-L3 FUSION Procedure is scheduled 11/20/23 to be done at [facility] in [place], [place] Preoperative evaluation Requested by/Surgeon: _Dr Jaswant Flores Planned surgery:intermediate risk (intraperitoneal, intrathoracic, CEA, head/neck, ortho, prostate) Planned anesthesia:general Exercise tolerance:4 METs (climbing 1 flight, walking up hill, level ground @ 4mph, heavy house work) Bleeding tendency/history: _denies Substance use per social history in EHR denies Prior response to anesthesia: _denies Revised Cardiac Risk Index: Score [0_] [_] High Risk Surgery [_] Ischemic Heart Disease [_] History of CHF [_] History of cerebrovascular disease [_] Insulin therapy for DM [_] Pre-op Cr >2 Review of Systems Constitutional: No fever, No chills, No fatigue. _ ENT: No TM drainage, No otalgia, no rhinorrhea, no sore throat Respiratory: No shortness of breath, No cough, No wheezing. _ Cardiovascular: no lightheadedness/presyncope, No chest pain, No palpitations. _ Gastrointestinal: No nausea, No vomiting, No diarrhea, No constipation, No heartburn, No abdominal pain ._ Musculoskeletal: +++back pain, No neck pain, No joint pain, No muscle pain, No decreased range of motion, No trauma. _ Integumentary: No rash, No pruritus, No breakdown. _ Neurologic: Alert and oriented X4, No abnormal balance, No numbness, No tingling, No headache. _ Physical Exam Vitals & Measurements T:36.6C RR:72 BP:142/78 HT:157.5cm WT:65.000kg(Dosing) WT:65.0kg BMI:26.2 PHQ2 Data(Data Documented on:11/08/2023 08:13) Emotional health assessment NEGATIVE PHYSICAL EXAMINATION: GENERAL [...] of thyroid enlargement. No lymphadenopathy or tenderness. LUNGS: Breath sounds are equal and clear [...] well perfused. Good turgor. Assessment/Plan 1.Preoperative examination 2.Fusion of spine of lumbar region 3.Lumbar stenosis with neurogenic claudication 4.Lumbar radiculopathy 5.Abnormal ECG Preop ECG from 11/07/23 reviewed and compared to ECG 05/17/23 .NEWST-T changes in lateral leads- Lateral infarct ., age undetermined 6.Aortic valve stenosis, moderate Echocardiogram 06/22/23 - LVEF 60-64 % Moderate Discussed with pt about with new ECG findings and hx ofAS, Have cardiology do evaluation for preop clearance . Pt has seen Dr King past and request to see him again Refer tocardiology to assist in clearance and see if pt needs further cardiac testing -stress echo before surgery 7.Hypertension Stable CMP unremarkable Continue amlodipine 5 mg daily Continue lisinopril 20 mg daily 8.Prediabetes Stable Glucose in acceptable range for surgery 9.Hyperlipidemia Continue ezetimibe 10 mg daily 10.Pancytopenia WBC 2.36, Hgb 10.6, [id number] Repeat CBC with diff, add B12 and folate , along with iron studies Will consider hematology referral pending repeat labs 11.Abnormal urine findings Urine test showed + Leuk esterase , +RBC's Treat Cipro 500 mg bid x 1 week , repeat urine in 7-10 days Pt is discomfort with pain 8-9/10 at times Tramadol 50 mg 1 q 6 hr prnpain >7 At this time pt is NOT medically cleared Will await cardiology evaluation and repeat labs as above Problem List/Past Medical History Ongoing Anxiety Aortic valve stenosis Carotid bruit Chronic constipation GERD without esophagitis Hiatal hernia Hx of shoulder replacement Hyperlipidemia Hypertension Insomnia Lumbar radiculopathy Lumbar stenosis with neurogenic claudication MR (mitral regurgitation) Osteoarthritis of right knee Prediabetes Rosacea Subclinical hyperthyroidism Procedure/Surgical History back surgery| Service Date: 11/2018left knee replacement revision| Service Date: 03/04/2018Total knee replacement| Service Date: 12/2015Total knee replacement| Service Date: 01/2015Surgery| Service Date: 10/2011Spinal fusion| Service Date: 01/2011Surgery| Service Date: 05/2010Carpal tunnel release| Service Date: 2002Total hysterectomy| Service Date: 1984Cesarean section| Service Date: 1976Cesarean section| Service Date: 1969Cesarean section| Service Date: 1967Total right shoulder replacementHistory of nasal sinus surgerySurgeryExcision of ganglion cystExcision of lipomaSurgery Medications albuterol(Ventolin HFA) amLODIPine(amLODIPine 5 mg oral tablet), 1 tab, PO, Daily cetirizine(cetirizine 10 mg oral tablet) ciprofloxacin(Cipro 500 mg oral tablet), 500 mg= 1 tab, PO, q12h dexamethasone-tobramycin ophthalmic(Tobradex 0.3%-0.1% ophthalmic suspension), 2 drop, left eye, qid ezetimibe(ezetimibe 10 mg oral tablet), 1 tab, PO, qAM furosemide(furosemide 20 mg oral tablet), 20 mg= 1 tab, PO, Daily, 1 refills lisinopril(lisinopril 20 mg oral tablet), 1 tab, PO, qAM meloxicam(meloxicam 15 mg oral tablet), 15 mg= 1 tab, PO, Daily, 3 refills omeprazole(omeprazole 40 mg oral delayed release capsule), See Instructions traMADol(traMADol 50 mg oral tablet), 50 mg= 1 tab, PO, q6h, PRN, 1 refills traZODone(traZODone 300 mg oral tablet), 1 tab, [...] virus vaccine, inactivated 11/10/2021 Recorded Comments : Actimize Architect: Sanofi Pasteur influenza virus vaccine, inactivated 12/05/2020 Recorded Comments : Actimize Architect: MostLikely influenza virus vaccine, inactivated 12/05/2020 Recorded pneumococcal 13-valent vaccine 08/04/2019 Recorded Comments : Unit: Unknown Actimize Architect: P[employer] [place] pneumococcal 23-valent vaccine 11/29/2017 Recorded Comments : Unit: Unknown Actimize Architect: Merck and Co. meningococcal conjugate vaccine 05/14/2008 [...] the next year) OverDue Adult Influenza Vaccine due08/05/23and every 1year Due Adult COVID-19 Vaccination due11/09/23Unknown Frequency Adult Social Determinants of Health Screening due11/09/23Unknown Frequency Adult Tdap/Td Vaccine due11/09/23Unknown Frequency Hepatitis C Screening due11/09/23One-time only Medicare Annual Wellness Visit due11/09/23and every 1year Osteoporosis Screening due11/09/23One-time only Shingles Vaccine due11/09/23One-time only Satisfied(in the past 1 year) Satisfied Body Mass Index on11/08/23.Satisfied by JENNIFER Brothers Jayla Lipid Screening on06/27/23.Satisfied by SYSTEM Electronic Signature on File Electronically Reviewed/Signed by: Cortez Juarez DO Author Signature Dt/Tm:11/09/2023 02:22 PM Family Medicine DTM Patient Care team information Care Team Related Persons Name: CORTEZ PEDRO Name: CORTEZ PEDRO"
--- OUTSIDE RECORDS SUMMARY | 2023-11-20 12:19 | External Medical Summary ---
Author Name Unknown Address Unknown Organization [facility] [address] [place] [id number] Laboratory Report Ordering Provider Test Date Status Ann Toro 11/16/2023 12:48:25 Final Observation Date Value Abnormality Reference (Units ) Status Neutrophils/100 leukocytes in Blood by Automated count 11/16/2023 16:40:08 56.3 (%) Final Lymphocytes/100 leukocytes in Blood by Automated count 11/16/2023 16:40:08 24.9 (%) Final Monocytes/100 leukocytes in Blood by Automated count 11/16/2023 16:40:08 16.4 (%) Final Eosinophils/100 leukocytes in Blood by Automated count 11/16/2023 16:40:08 1.9 (%) Final Basophils/100 leukocytes in Blood by Automated count 11/16/2023 16:40:08 0.5 (%) Final Immature granulocytes/100 leukocytes in Blood 11/16/2023 16:40:08 0.0 (%) Final Neutrophils [#/volume] in Blood by Automated count 11/16/2023 16:40:08 1.20 Below low normal 2.00-7.70 (K/uL) Final Lymphocytes [#/volume] in Blood by Automated count 11/16/2023 16:40:08 0.53 Below low normal 1.00-3.40 (K/uL) Final Monocytes [#/volume] in Blood by Automated count 11/16/2023 16:40:08 0.35 0.00-1.00 (K/uL) Final Eosinophils [#/volume] in Blood by Automated count 11/16/2023 16:40:08 0.04 0.00-0.50 (K/uL) Final Basophils [#/volume] in Blood by Automated count 11/16/2023 16:40:08 0.01 0.00-0.10 (K/uL) Final Immature granulocytes [#/volume] in Blood by Automated count 11/16/2023 16:40:08 0.00 0.00-0.40 (K/uL) Final Performing Location [facility] [address] [address]
[2023-11-20] MEDS: ceFAZolin 330 MG/ML 1 GM VIAL ONE (12:33)
[2023-11-20] MEDS: FLOSEAL HEMOSTATIC MATRIX 10ML TOP ONE (13:23)
[2023-11-20] MEDS ORDERED: NOREPINEPHRINE BITARTRATE 1 MG/ML 4 ML VIAL IV ONE (13:35)
[2023-11-20] MEDS ORDERED: PHENYLEPHRINE 100MCG/ML 10ML SYR IV ONE (13:36)
[2023-11-20] MEDS ORDERED: ePHEDrine sulfate 50 MG/5 ML SYR ONE (13:36)
--- NOTE | 2023-11-20 13:39 | Operative Report ---
Post Operative Report Pre & Post Diagnosis Operation Date: 11/20/23 11:05 Pre-Op Diagnosis: Neurogenic claudication due to lumbar spinal stenosis Post-Op Diagnosis: Neurogenic claudication due to lumbar spinal stenosis I identified the patient and participated in the time-out.: Yes Procedure Operation Date: 11/20/23 11:05 Actual Procedures #1 revision decompression with bilateral medial facetectomies and foraminotomies T12-L1 L1-L2. #2 posterior spinal fusion T11-L3. #3 posterior segmental instrumentation T11-L3. #4 interbody fusion L1-L2. #5 placement of Spira 8 x 22 mm at L1 O2. #6 placement locally harvested morselized autograft in the posterior gutters. #7 placement infuse collagen sponge, with Koros in the posterior lateral gutters and os design and interbody space. #8 application of versa wrap over the exposed dura. Surgeon Jaswant Flores, Customer Associate Kimmie Brown Estimated Blood Loss 200 Findings Consistent with Post-Op Diagnosis Specimens None Indications This is a 78-year-old female presents above-mentioned diagnosis after failing course of nonoperative care she is here for surgical invention. Description of Procedure Patient was met with identified informed consent obtained. Patient was then taken to the operative suite underwent intubation placed in the prone position on the Hector table chest pad and hip bolsters. All bony promises well-padded eyes inspected to ensure no external pressure placed upon them. This point the thoracolumbar spine was prepped and draped no sterile fashion. Sharp dissection with assistance bradycardias from down to and exposing the remaining lamina and transverse processes of T11-T12 L1-L2-L3. I then performed a revision laminectomy complete bilateral medial facetectomies foraminotomies L1-L2 followed by partial laminectomy of T12 with bilateral medial facetectomies to address severe spinal stenosis. Pedicle screws were then placed in T11-T12 L1-L2-L3 bilaterally with assistance of fluoroscopy. By way of transforaminal approach on the right I discectomy of L1-L2 was performed endplates grade 2 subcortical bleeding bone and an 8 x 22 mm Spira cage filled with os designed tapped in position. Appropriate size rods were then contoured and locked into place bilaterally. The transverse processes of T11-T12 L1-L2-L3 burred to subcortical bleeding bone. Infuse collagen sponge combined with Koros and local autograft placed in the posterior lateral gutters. 15 round CRISTEL drain inserted. Versa wrap placed over the exposed dura. The incision was then closed with 1 Vicryl the fascia 2-0 Vicryl subcutaneously and 4 Monocryl for final skin closure. Steri-Strips sterile dressing placed. Patient waken taken to PACU stable condition. Please note spinal cord monitoring visualized throughout the procedure no changes noted. Kimmie Brown was present at the entire surgery and while the patient positioning complex portions of the surgery and final skin closure. Im ordering 20 grams of Triple [place] Collagen Powder ([employer] [id number]) to treat an incision wound that was caused by a spine procedure. The incision is approximately 2 cm(W) x 4 cm(L) into the joint (D) in size and is a full thickness wound. Triple Fairmont collagen comes in 1 gram packets so 20 packets were ordered. Given the size of the wound, with light to moderate exudate I chose to order a 20 day supply. The patient will be provided instructions for proper application of the collagen wound kit. The patient will be asked to apply the collagen powder daily and then cover it with sterile dressings dispensed. Collagen was selected as I expect the collagen to attract monocytes and fibroblasts, act as a sacrificial substrate for MMPs, and ultimately proved a matrix for tissue and vessel growth. The collagen will act as a primary dressing in this scenario. It is medically necessary for proper healing of these wounds to improve bioavailability and contact with each wound surface, this is also to help prevent infection of wounds and promote healing ultimately leading to a better healing outcome and limit the risk of infection. I attest to the content of the Intraoperative Record and any orders documented therein. Any exceptions are noted below.
--- NOTE | 2023-11-20 14:04 | Fluoroscopy Report ---
FL lumbar spine 2-3V CLINICAL HISTORY: L1 DECOMP REVISION T11-L3 FUSION COMPARISON STUDY: None. FLUOROSCOPY TIME: 48 seconds. Ka, r: 16.30 mGy FLUOROSCOPIC IMAGES: 3 FINDINGS: Exact localization is difficult given partial visualization of the lumbar spine. These imag es demonstrate a discectomy with interbody spacer placement with multilevel posterior decompression a nd fusion. The hardware is intact. No unexpected radiopaque foreign bodies are identified. IMPRESSION: Fluoroscopy provided during during thoracolumbar spine decompression and fusion, as abov e. ACT 112: Negative or not required by law. Electronically signed by: Sean Valerio M.D. 11/20/2023 2:03 PM
[2023-11-20] MEDS: HYDROmorphone INJ 1 MG/ML SYRINGE IV PRN (14:08)
--- NOTE | 2023-11-20 14:58 | Anesthesiology Progress Note ---
Date of Service November 20, 2023 Anesthesia Post Procedure Vital Signs Vital Signs: Temp Pulse Resp BP Pulse Ox O2 Del Method O2 Flow Rate 11/20/23 14:50 83 14 127/58 L 98 Oxymask 2 11/20/23 14:40 78 14 111/68 98 Oxymask 4 11/20/23 14:30 80 12 116/54 L 100 Oxymask 4 11/20/23 14:20 83 19 113/51 L 99 Oxymask 6 11/20/23 14:10 91 H 22 114/51 L 100 Oxymask 8 11/20/23 14:00 83 16 106/57 L 100 Oxymask 10 11/20/23 13:51 36.8 C 93 H 16 128/73 96 Oxymask 10 11/20/23 09:29 36.8 C 71 20 137/72 96 Room Air Pain Intensity Lower Back: Pain Intensity: 8 Back: Pain Intensity: 4 Transfer of Care Handoff Completed per policy Notes Mental Status: alert / awake / arousable and participated in evaluation Nausea / Vomiting: adequately controlled Pain: adequately controlled Airway Patency, RR, SpO2: stable & adequate BP & HR: stable & adequate Hydration State: stable & adequate Anesthetic Complications: no major complications apparent and Pt Satisfied with anesthetic care
[2023-11-20] MEDS ORDERED: ACETAMINOPHEN 1,000 MG/100 ML VIAL IV PRN (15:33)
[2023-11-20] MEDS ORDERED: ONDANSETRON 4 MG OD TAB PO PRN (15:33)
[2023-11-20] MEDS ORDERED: LORazepam 2 MG/1 ML VIAL IV PRN (15:33)
[2023-11-20] MEDS ORDERED: HYDROmorphone INJ 1 MG/ML SYRINGE IV PRN (15:33)
[2023-11-20] MEDS ORDERED: PROMETHAZINE 12.5 MG/50.5 ML BAG IV PRN (15:33)
[2023-11-20] MEDS ORDERED: bisacodyL 10 MG SUPP PR PRN (15:33)
[2023-11-20] MEDS ORDERED: SOD PHOSPHATE/SOD BIPHOSPHATE ENEMA 132 ML BTL PR PRN (15:33)
[2023-11-20] MEDS ORDERED: FAMOTIDINE 20 MG TAB PO PRN (15:33)
[2023-11-20] MEDS ORDERED: METOCLOPRAMIDE HCL INJ 5 MG/ML 2 ML VIAL IV PRN (15:33)
[2023-11-20] MEDS ORDERED: DO NOT ADMINISTER FLU VACCINE PRN (15:33)
[2023-11-20] MEDS ORDERED: DO NOT ADMINISTER PNEUMOCOCCAL VACCINE PRN (15:33)
[2023-11-20] MEDS ORDERED: NALOXONE HCL 0.4 MG/1 ML VIAL/CARP IV PRN (15:33)
[2023-11-20] MEDS ORDERED: MAGNESIUM HYDROXIDE SUSP 30 ML UDC PO PRN (15:33)
[2023-11-20] MEDS ORDERED: HYDROmorphone INJ 0.5 MG/0.5 ML SYR IV PRN (15:33)
[2023-11-20] MEDS ORDERED: diphenhydrAMINE Capsule 25 MG CAP PO PRN (15:33)
[2023-11-20] MEDS ORDERED: traMADol HCL 50 MG TABLET PO PRN (15:33)
[2023-11-20] MEDS ORDERED: ALUMINUM/MAGNESIUM SUSP 30 ML UDC PO PRN (15:33)
[2023-11-20] MEDS ORDERED: hydrOXYzine HCl 25 MG TAB PO PRN (15:33)
[2023-11-20] MEDS ORDERED: LORazepam 0.5 MG TAB PO PRN (15:33)
[2023-11-20] MEDS: LACTATED RINGER'S 1,000 ML IV SCH (15:52)
[2023-11-20] MEDS: oxyCODONE HCL IR 5 MG TAB (IMMEDIATE RELEASE) PO PRN (18:01)
[2023-11-20] MEDS: DOCUSATE SODIUM/SENNA 50/8.6MG TAB PO SCH (21:27)
[2023-11-20] MEDS: CHOLECALCIFEROL 25 MCG (1000 UNITS) TAB PO SCH (21:27)
[2023-11-20] MEDS: ONDANSETRON INJ 2 MG/ML 2 ML VIAL IV PRN (21:41)
[2023-11-21] MEDS: POLYETHYLENE (MIRALAX) 17 GM PACK PO SCH (05:19)
[2023-11-21 07:41] LABS: Eosinophils # (auto) 0.01 K/uL (0.00-0.50); Eosinophils % (auto) 0.1 %; Hematocrit (blood only) 28.3 % (37.0-47.0); Hemoglobin 9.3 g/dl (12.0-16.0); Immature Granulocytes # (auto) 0.01 K/uL (0.01-0.20); Immature Granulocytes % (auto) 0.1 %; Lymphocytes # (auto) 0.62 K/uL (1.20-3.40); Lymphocytes % (auto) 8.4 %; Mean Corpuscular Hemoglobin 27.8 pg (25.0-34.0); Mean Corpuscular Hgb Conc 32.9 g/dL (32.0-36.0); Mean Corpuscular Volume 84.7 fL (80.0-100.0); Mean Platelet Volume 12.1 fL (9.4-12.4); Monocytes % (auto) 14.9 %; Neutrophils # (auto) 5.62 K/uL (1.40-6.50); Neutrophils % (auto) 76.5 %; Platelet Count 189 K/uL (130-400); RDW Coefficient of Variation 13.6 % (11.5-14.5); RDW Standard Deviation 42.1 fL (36.4-46.3); Red Blood Count 3.34 M/uL (4.20-5.40); White Blood Count 7.36 K/ul (4.8-10.8)
[2023-11-21 08:04] LABS: BUN Creatinine Ratio 20.5 (10-20); Calcium 8.3 mg/dl (8.6-10.3); Creatinine Clr Calc Pharmacy 55.1 ml/min; Potassium 4.6 mmol/L (3.5-5.1)
[2023-11-21] MEDS: EZETIMIBE 10 MG TAB PO SCH (08:08)
[2023-11-21] MEDS: PANTOprazole 40 MG TAB PO SCH (08:08)
[2023-11-21] MEDS: dexAMETHasone 6 MG in SYRINGE 0 ML IV SCH (08:08)
[2023-11-21] MEDS: lisinopril 20 MG TAB PO SCH (08:08)
[2023-11-21] MEDS: amLODIPine BESYLATE 5 MG TAB PO SCH (08:08)
--- NOTE | 2023-11-21 08:23 | Orthopedic Progress Note ---
Date of Service November 21, 2023 Assessment & Plan (1) Neurogenic claudication due to lumbar spinal stenosis: Plan: At this time initiate physical therapy monitor CRISTEL output. I have ordered a TLSO brace for her to wear with prolonged activity and walking. She does have evidence of significant osteopenia and is at risk for fracture. Admission and Anticipated Discharge Date Admission Date: November 20, 2023 Subjective Back pain is controlled leg symptoms improved Physical Exam Physical Exam: Patient is currently bed. She is comfortable. Good strength testing. Results & Data Vital Signs (Past 12 Hours) Vital Signs Temp Pulse Resp BP Pulse Ox O2 Del Method 11/21/23 07:44 37.2 C 78 18 97/55 L 96 Room Air 11/21/23 03:50 36.6 C 65 14 95/55 L 96 Room Air 11/21/23 00:31 36.9 C 83 16 108/68 95 Room Air
--- NOTE | 2023-11-21 09:30 | Hospitalist Consultation ---
Date of Consultation November 21, 2023 Assessment & Plan (1) Neurogenic claudication due to lumbar spinal stenosis: S/P lumbar decompression revision and fusion, pod #1 - Management per primary service - Agree with pain management (tiered for pain scale), PT/OT eval, and TSLO brace when ambulating - CRISTEL drain management per Dr. Flores - Monitor incision for s/sx of infection (2) Aortic stenosis: Chronic/stable - Echo 11/2023 with moderately reduced LVEF of 35-40%, moderate to severe and mild to moderate MR - Monitor volume status, no evidence of volume overload at this time (3) Hypertension: Chronic - BP slightly low this AM, place hold parameters on meds (hold for SBP <100) - Currently on Amlodipine and Lisinopril which have been resumed (4) Osteoarthritis of knee: Chronic - Continue meloxicam (5) GERD (gastroesophageal reflux disease): Chronic - Continue PPI Plan Reviewed labs this AM, cbc with hgb of 9.3 g/dL, monitor pod #2 and if <9, consider adding iron supplementation. Repeat labs in AM ordered. Remove catheter today if ok with Dr. Flores. Thank you for allowing me to participate in the care of your patient, will follow along. Further orders as warranted by attending, Dr. Barber. Supervising Physician Co-Signing Physician Notes During face to face encounter, I obtained a history and physical examination, discussed hospital stay with patient and plan of care with patient. I discussed plan of care with LILLY Barron. I reviewed above note and agree with it except for the following: consulted for medical management for comorbidities management. resumed hypertension meds History of Present Illness Reason for Consultation: Medical management Requesting Physician: Dr. Jaswant Flores Attending Physician: Jaswant Flores, DO History of Present Illness Jeannette is a 78 yo F with a pmhx of , OA, HTN, osteopenia and GERD who was admitted to [facility] for a lumbar decompression revision and fusion. She underwent surgery on 11/19, had general anesthesia, and had no immediate post operative complications other than some mild nausea. She is resting comfortably in bed this AM. She reports pain is adequately controlled. She denies chest pain, dyspnea, cough, fever, chills, lower extremity numbness/tingling. She has not had a BM yet but this is a chronic issue for her. She is passing flatus. She currently has a catheter in place draining appropriately. She was able to eat some breakfast this AM. No concerns verbalized by patient. Hospitalists were consulted for post operative medical management. Allergies Allergy/AdvReac Type Severity Reaction Status Date / Time nitrofurantoin Allergy Severe Nausea Verified 11/20/23 09:22 [From Macrobid] Penicillins Allergy Intermediate Hives Verified 11/20/23 09:22 tetracycline Allergy Intermediate Vomiting Verified 11/20/23 09:22 pseudoephedrine Allergy Mild Rash Verified 11/20/23 09:22 Sulfa (Sulfonamide Allergy Mild Hives Verified 11/20/23 09:22 Antibiotics) nabumetone [From Relafen] AdvReac Severe Chest Pain Verified 11/20/23 09:22 Home Medications Medication Instructions Recorded Confirmed Type amlodipine 5 mg tablet (Norvasc) 5 mg PO QAM 04/13/23 11/20/23 History cyclobenzaprine 10 mg tablet 10 mg PO TID PRN Pain (Scale Score 04/13/23 11/20/23 History 1-3) ezetimibe 10 mg tablet (Zetia) 10 mg PO QAM 04/13/23 11/20/23 History lisinopril 20 mg tablet 20 mg PO QAM 04/13/23 11/20/23 History omeprazole 40 mg capsule,delayed 40 mg PO QAM 04/13/23 11/20/23 History release trazodone 300 mg tablet,extended 300 mg PO HS 04/13/23 11/20/23 History release 24 hr polyethylene glycol 3350 17 gram 17 g PO DAILY PRN constipation #5 05/21/23 11/20/23 Rx oral powder packet (Miralax) ea meloxicam 15 mg tablet 15 mg PO QAM 10/26/23 11/20/23 History Vitamin D3 1 cap PO BID 11/20/23 11/20/23 History oxycodone 5 mg tablet 5 mg PO Q6H PRN pain #30 tabs 11/21/23 Rx tramadol 50 mg tablet 50 mg PO Q6H PRN pain, moderate 11/21/23 Rx #30 tabs Patient History Medical History (Updated 11/21/23 @ 09:34 by Heather Delgado PA-C) UTI (urinary tract infection) dx 11-08-23, started on and completed dose of antibotics. no s/s at this time as per pt Anemia ongoing since 05/2023 to chart review History of blood transfusion during hysterectomy Hypercholesteremia Hypertension controlled, stable per pt Aortic stenosis Echo 06/2022: Mild to moderate aortic stenosis (EZEQUIEL 1.32cm2, MG 15mmhg), states does not follow with cardiology CSF leak Hx of spinal tap (age 30). Patient cannot remember the reason that they did the spinal tap but states that she was having issues with migraines at the time and thought this might have been related to the reason for doing it. She states there was procedure complications that resulted in CSF leaking/complicated hospital course. Basal cell carcinoma (BCC) several, removed History of COVID-19 2020- Covid + bacterial PNA, hospitalization x 1 month ([facility]) > resolved Chronic pain Osteoarthritis Surgical History Nausea and vomiting after administration of anesthetic agent denies needing scop patch History of esophagogastroduodenoscopy (EGD) History of colonoscopy History of basal cell carcinoma (BCC) excision x2, face and chest Hx of section x3 Hx of total hysterectomy Hx of sinus surgery x3 Hx of shoulder surgery left AC joint impingement History of decompression of both ulnar nerves History of carpal tunnel surgery of right wrist Hx of bilateral cataract extraction Hx laparoscopic cholecystectomy History of total replacement of right shoulder joint Hx of left knee surgery patellar surgery Hx of left knee surgery left total knee revision History of left knee replacement History of back surgery x3 most recent 11/2022 Social History Smoking Status: Never smoker Second Hand Exposure: No; Do You Dip or Chew Tobacco: No; Tobacco Cessation Education Requested by Patient: No Hx Alcohol Use: Yes Hx Substance Use: No Preferred Language: Macedonian Communication Ability: Effective Sweat Band Separator Required: No Beliefs That Will Affect Care: None Current Living Situation: Significant Other Other Information That Helps Us Care for You: No Feels Safe at Home: Yes Safety Concerns: Feels Safe At This Time Assistive Devices: Walker Review of Systems 2 Review of Systems: All systems reviewed and are unremarkable except as noted in HPI and below. Denies fever, chills, fatigue, headache, nasal congestion, sore throat, cough, chest pain, shortness of breath, palpitations, orthopnea, PND, abdominal pain, n/v/d, constipation, dysuria, hematuria, frequency, joint pain or swelling, easy bruising or bleeding, skin lesions or rashes. Physical Exam 2 Physical Exam: GENERAL: 78 yo Well-developed, well-nourished F. NAD. EYES: EOMI. PERRLA. Anicteric. HENT: Moist mucous membranes. No cervical lymphadenopathy. LUNGS: Clear to auscultation bilaterally. No W/R/R. CARDIOVASCULAR: Regular rate and rhythm. +murmur. ABDOMEN: Soft, non-tender and non-distended. Bowel sounds normoactive x 4 quad. EXTREMITIES: No edema. Non-tender. Peripheral pulses +2/4. NEUROLOGIC: A&O x3. No focal neurological deficits. CN II-XII grossly intact. PSYCHIATRIC: Cooperative. Appropriate mood and affect. SKIN: Warm, dry, intact. No rashes or lesions. Back incision is dressed and CRISTEL drain noted with moderate amount of serosanguineous drainage. Results & Data Results & Data Vital Signs (Past 12 Hours) Vital Signs Temp Pulse Resp BP Pulse Ox O2 Del Method 11/21/23 07:44 37.2 C 78 18 97/55 L 96 Room Air 11/21/23 03:50 36.6 C 65 14 95/55 L 96 Room Air 11/21/23 00:31 36.9 C 83 16 108/68 95 Room Air Laboratory Results 11/21/23 07:17 11/21/23 07:17 Diagnostic Findings Lumbar Spine X-Ray 11/20/23 11:05 FL lumbar spine 2-3V CLINICAL HISTORY: L1 DECOMP REVISION T11-L3 FUSION COMPARISON STUDY: None. FLUOROSCOPY TIME: 48 seconds. Ka, r: 16.30 mGy FLUOROSCOPIC IMAGES: 3 FINDINGS: Exact localization is difficult given partial visualization of the lumbar spine. These images demonstrate a discectomy with interbody spacer placement with multilevel posterior decompression and fusion. The hardware is intact. No unexpected radiopaque foreign bodies are identified. IMPRESSION: Fluoroscopy provided during during thoracolumbar spine decompression and fusion, as above. ACT 112: Negative or not required by law. Electronically signed by: Sean Valerio M.D. 11/20/2023 2:03 PM PG Care Time/CCT Total # of Minutes Spent Total Time Spent with Patient: Total time spent is greater than 50% in coordination of care (as documented) at patient's floor/unit and/or counseling patient: 62 minutes Coding Level of Care Code 89620 IN/OBS CONSULT LVL 4,60M Diagnoses Neurogenic claudication due to lumbar spinal stenosis M48.062 Nonrheumatic aortic valve stenosis I35.0 Cardiac valve disease etiology: nonrheumatic Primary hypertension I10 Hypertension type: primary hypertension Primary osteoarthritis of right knee M17.11 Laterality: right Osteoarthritis type: primary GERD (gastroesophageal reflux disease) K21.9 (2) Aortic stenosis Cardiac valve disease etiology: nonrheumatic Qualified Code(s): I35.0 - Nonrheumatic aortic (valve) stenosis (3) Hypertension Hypertension type: primary hypertension Qualified Code(s): I10 - Essential (primary) hypertension (4) Osteoarthritis of knee Laterality: right Osteoarthritis type: primary Qualified Code(s): M17.11 - Unilateral primary osteoarthritis, right knee
[2023-11-21] MEDS ORDERED: TRAZODONE 300 MG PO SCH (21:00)
[2023-11-22] MEDS: TRAZODONE HCL 300 MG PO SCH
[2023-11-22 07:01] LABS: Basophils # (auto) 0.01 K/uL (0.00-0.20); Basophils % (auto) 0.2 %; Eosinophils # (auto) 0.02 K/uL (0.00-0.50); Eosinophils % (auto) 0.3 %; Hematocrit (blood only) 26.2 % (37.0-47.0); Hemoglobin 8.4 g/dl (12.0-16.0); Immature Granulocytes # (auto) 0.02 K/uL (0.01-0.20); Immature Granulocytes % (auto) 0.3 %; Lymphocytes # (auto) 0.78 K/uL (1.20-3.40); Lymphocytes % (auto) 12.7 %; Mean Corpuscular Hemoglobin 27.9 pg (25.0-34.0); Mean Corpuscular Hgb Conc 32.1 g/dL (32.0-36.0); Mean Platelet Volume 12.1 fL (9.4-12.4); Monocytes # (auto) 1.02 K/uL (0.11-0.59); Monocytes % (auto) 16.6 %; Neutrophils # (auto) 4.29 K/uL (1.40-6.50); Neutrophils % (auto) 69.9 %; Platelet Count 150 K/uL (130-400); RDW Standard Deviation 44.2 fL (36.4-46.3); Red Blood Count 3.01 M/uL (4.20-5.40); White Blood Count 6.14 K/ul (4.8-10.8)
[2023-11-22 07:20] LABS: BUN Creatinine Ratio 23.7 (10-20); Calcium 8.2 mg/dl (8.6-10.3); Creatinine Clr Calc Pharmacy 52.9 ml/min; Magnesium 1.8 mg/dl (1.7-2.4); Potassium 4.3 mmol/L (3.5-5.1)
--- NOTE | 2023-11-22 08:15 | Orthopedic Progress Note ---
Date of Service November 22, 2023 Assessment & Plan (1) Neurogenic claudication due to lumbar spinal stenosis: Plan: At this time we will continue physical therapy monitor CRISTEL output anticipate discharge home tomorrow. Admission and Anticipated Discharge Date Admission Date: November 20, 2023 Subjective Patient's back pain is controlled leg pain improved. She is tolerating physical therapy. No bowel movement yet. Physical Exam Physical Exam: Patient is sitting at the bedside. Has good strength testing. Is comfortable. Results & Data Vital Signs (Past 12 Hours) Vital Signs Temp Pulse Resp BP Pulse Ox O2 Del Method 11/22/23 07:46 36.7 C 69 16 97/61 L 93 Room Air 11/21/23 21:12 37.0 C 66 16 106/63 96 Room Air
[2023-11-22] MEDS: ACETAMINOPHEN 500 MG TAB PO PRN (15:05)
--- NOTE | 2023-11-22 22:46 | Hospitalist Progress Note ---
Date of Service November 22, 2023 Assessment & Plan (1) Neurogenic claudication due to lumbar spinal stenosis: Plan: S/P lumbar decompression revision and fusion, pod #1 - Management per primary service - Agree with pain management (tiered for pain scale), PT/OT eval, and TSLO brace when ambulating - CRISTEL drain management per Dr. Flores - Monitor incision for s/sx of infection (2) Aortic stenosis: Plan: Chronic/stable - Echo 11/2023 with moderately reduced LVEF of 35-40%, moderate to severe and mild to moderate MR - Monitor volume status, no evidence of volume overload at this time Acute blood loss anemia: likely from procedure. will monitor. (3) Hypertension: Plan: Chronic - BP slightly low this AM, place hold parameters on meds (hold for SBP <100) - Currently on Amlodipine and Lisinopril which have been resumed (4) Osteoarthritis of knee: Plan: Chronic - Continue meloxicam (5) GERD (gastroesophageal reflux disease): Plan: Chronic - Continue PPI Plan Reviewed labs this AM, cbc with hgb of 9.3 g/dL, monitor pod #2 and if <9, consider adding iron supplementation. Repeat labs in AM ordered. Remove catheter today if ok with Dr. Flores. Thank you for allowing me to participate in the care of your patient, will follow along. Further orders as warranted by attending, Dr. Barber. Admission and Anticipated Discharge Date Admission Date: November 20, 2023 Subjective Patient reports no new symptoms. Physical Exam Physical Exam: GENERAL: NAD. EYES: EOMI. PERRLA. Anicteric. HENT: Moist mucous membranes. No cervical lymphadenopathy. LUNGS: Clear to auscultation bilaterally. No W/R/R. CARDIOVASCULAR: Regular rate and rhythm. +murmur. ABDOMEN: Soft, non-tender and non-distended. Bowel sounds normoactive x 4 quad. EXTREMITIES: No edema. Non-tender. Peripheral pulses +2/4. NEUROLOGIC: A&O x3. No focal neurological deficits. CN II-XII grossly intact. PSYCHIATRIC: Cooperative. Appropriate mood and affect. Results & Data Results & Data Vital Signs (Past 12 Hours) Vital Signs Temp Pulse Resp BP Pulse Ox O2 Del Method 11/22/23 21:55 36.8 C 62 18 90/54 L 93 Room Air 11/22/23 19:20 36.6 C 60 17 92/54 L 96 Room Air 11/22/23 18:03 36.5 C 58 L 14 103/57 L 96 Room Air 11/22/23 14:37 36.4 C L 65 16 102/67 100 Room Air 11/22/23 11:30 36.5 C 64 14 106/63 96 Room Air PG Care Time/CCT Total # of Minutes Spent Total Time Spent with Patient: Total time spent is greater than 50% in coordination of care (as documented) at patient's floor/unit and/or counseling patient: Coding Level of Care Code 58541 SUB INP/OBS CARE MIN Diagnoses Neurogenic claudication due to lumbar spinal stenosis M48.062 Nonrheumatic aortic valve stenosis I35.0 Cardiac valve disease etiology: nonrheumatic Primary hypertension I10 Hypertension type: primary hypertension Primary osteoarthritis of right knee M17.11 Osteoarthritis type: primary Laterality: right GERD (gastroesophageal reflux disease) K21.9 (2) Aortic stenosis Cardiac valve disease etiology: nonrheumatic Qualified Code(s): I35.0 - Nonrheumatic aortic (valve) stenosis (3) Hypertension Hypertension type: primary hypertension Qualified Code(s): I10 - Essential (primary) hypertension (4) Osteoarthritis of knee Osteoarthritis type: primary Laterality: right Qualified Code(s): M17.11 - Unilateral primary osteoarthritis, right knee
[2023-11-23 07:01] LABS: Hematocrit (blood only) 26.5 % (37.0-47.0); Hemoglobin 8.2 g/dl (12.0-16.0); Mean Corpuscular Hemoglobin 27.4 pg (25.0-34.0); Mean Corpuscular Hgb Conc 30.9 g/dL (32.0-36.0); Mean Corpuscular Volume 88.6 fL (80.0-100.0); Mean Platelet Volume 12.9 fL (9.4-12.4); Platelet Count 154 K/uL (130-400); RDW Standard Deviation 45.2 fL (36.4-46.3); Red Blood Count 2.99 M/uL (4.20-5.40); White Blood Count 6.28 K/ul (4.8-10.8)
[2023-11-23 07:28] LABS: BUN Creatinine Ratio 21.9 (10-20); Calcium 8.4 mg/dl (8.6-10.3); Creatinine Clr Calc Pharmacy 55.1 ml/min; Potassium 4.6 mmol/L (3.5-5.1)
--- NOTE | 2023-11-23 09:20 | Orthopedic Progress Note ---
Date of Service November 23, 2023 Assessment & Plan (1) Neurogenic claudication due to lumbar spinal stenosis: Plan: At this point to the patient still has not yet had a bowel movement. With a history of irritable bowel and concern sending her home may lead to more issues. Will keep her today and increase her bowel regimen. Will continue to have her walk as well. Will continue the GI DVT prophylaxis and pain control measures. All likelihood she will be able to be discharged home tomorrow. Admission and Anticipated Discharge Date Admission Date: November 20, 2023 Subjective Patient is seen bedside in room 308. She is postop day #3. She is doing well in terms of pain control. When she stands and walks she feels more upright. Her concern is that she has not yet had a bowel movement. This is a history of irritable bowel syndrome. She has been using MiraLAX for her bowel regiment. Her pain is well-controlled. She denies any other numbness, tingling, or paresthesias. Physical Exam Physical Exam: On exam she is alert and oriented. She is able to roll [id number] without difficulties. Her lower extremity motor exam reveals no focal atrophy her strength and sensation are both intact her gait is stable. Her abdomen soft and nontender calves are supple nontender. Cardiovascular exam reveals no gross abnormalities. Results & Data Vital Signs (Past 12 Hours) Vital Signs Temp Pulse Resp BP Pulse Ox O2 Del Method 11/23/23 07:42 36.6 C 72 14 101/63 95 Room Air 11/23/23 05:13 36.6 C 60 16 91/51 L 94 Room Air 11/22/23 21:55 36.8 C 62 18 90/54 L 93 Room Air
[2023-11-24 07:36] VITALS: BP 112/69; PULSE 60; RESP 18; TEMP 97.7; O2SAT 95
--- NOTE | 2023-11-24 08:41 | Discharge Summary ---
Date of Service November 24, 2023 Admission HPI Per Admitting Provider 78-year-old female presents for chronic persistent back and leg pain after failing course of nonoperative care she is here for surgical invention. Discharge Data Consultations 11/20/23 15:33 Consult Hospitalist Routine Procedures Performed Operation Date: 11/20/23 11:05 Actual Procedures p L1 Lumbar Decompression Revision, T11-L3 Fusion, Interbody Fusion L1-L2, Spinal Cord Monitoring(Not Applicable) - Jaswant Flores, Hospital Course (1) Neurogenic claudication due to lumbar spinal stenosis: Patient is a pleasant 78-year-old female with history physical examination and r adiographic images consistent with the above-mentioned diagnosis. For this reason she was brought to the operating room on 11/20/2019 for undergone a thoracolumbar decompression with Dr. Flores under general anesthesia. Hardware was placed from T11-L3. She left the operating room with a CRISTEL drain and Monk in place and transferred to the orthopedic floor. She was placed on GI and DVT prophylaxis. She was seen by physical therapy and Occupational Therapy for ambulation and gait training. She was having issues with constipation but has since had a bowel movement. At this point has been deemed safe for home discharge. Her discharge instructions were to change her dressing once daily till there is no drainage. Once there is no drainage she may shower. She was given oxycodone and tramadol for pain control. She is to avoid any full bending at the waist or lifting anything heavier than 5 to 7 pounds. We are going to see her back in the office in approximately 2 weeks or earlier if she developed any increased fevers, chills, increased drainage from the incision, or tenderness in her calves.
--- NOTE | 2023-11-24 10:08 | Hospitalist Progress Note ---
Date of Service November 23, 2023 Assessment & Plan (1) Neurogenic claudication due to lumbar spinal stenosis: Plan: S/P lumbar decompression revision and fusion, pod #3 - Management per primary service - Agree with pain management (tiered for pain scale), PT/OT eval, and TSLO brace when ambulating - CRISTEL drain management per Dr. Flores - Monitor incision for s/sx of infection (2) Aortic stenosis: Plan: Chronic/stable - Echo 11/2023 with moderately reduced LVEF of 35-40%, moderate to severe and mild to moderate MR - Monitor volume status, no evidence of volume overload at this time Acute blood loss anemia: likely from procedure. hemoglobin has been stable. (3) Hypertension: Plan: Chronic - BP slightly low this AM, place hold parameters on meds (hold for SBP <100) - Currently on Amlodipine and Lisinopril which have been resumed (4) Osteoarthritis of knee: Plan: Chronic - Continue meloxicam (5) GERD (gastroesophageal reflux disease): Plan: Chronic - Continue PPI Admission and Anticipated Discharge Date Admission Date: November 20, 2023 Subjective Patient reports having 2 bowel movements in the afternoon. Physical Exam Physical Exam: GENERAL: NAD. Chest: not using accessory muscles to breath. neuro: moving all extremities Results & Data Results & Data Vital Signs (Past 12 Hours) Vital Signs Temp Pulse Resp BP Pulse Ox O2 Del Method 11/24/23 07:34 36.5 C 60 18 112/69 95 Room Air PG Care Time/CCT Total # of Minutes Spent Total Time Spent with Patient: Total time spent is greater than 50% in coordination of care (as documented) at patient's floor/unit and/or counseling patient: Coding Level of Care Code 33267 SUB INP/OBS CARE 2/35MIN Diagnoses Neurogenic claudication due to lumbar spinal stenosis M48.062 Nonrheumatic aortic valve stenosis I35.0 Cardiac valve disease etiology: nonrheumatic Primary hypertension I10 Hypertension type: primary hypertension Primary osteoarthritis of right knee M17.11 Osteoarthritis type: primary Laterality: right GERD (gastroesophageal reflux disease) K21.9 (2) Aortic stenosis Cardiac valve disease etiology: nonrheumatic Qualified Code(s): I35.0 - Nonrheumatic aortic (valve) stenosis (3) Hypertension Hypertension type: primary hypertension Qualified Code(s): I10 - Essential (primary) hypertension (4) Osteoarthritis of knee Osteoarthritis type: primary Laterality: right Qualified Code(s): M17.11 - Unilateral primary osteoarthritis, right knee
== END 2023-11-24 13:00 | disposition home or self-care (01) | DRG 427 ==
LOC: ASU 08:53 → 3E 13:43